=== PATIENT | female | born 1990 | race Caucasian/White ===

== ENCOUNTER → 2018-07-03 | Outpatient (CLI) | payer MEDICAID | END | disposition home or self-care (01) | LOC: LABWHC1 09:57 | PROVIDERS: ATTEND Obstetrics & Gynecology Reproductive Endocrinology | DX: Z31.81 Encounter for male factor infertility in female patient (principal) | CPT/HCPCS: 36415; 84144 ==

== ENCOUNTER 2019-07-22 11:52 | Outpatient (CLI) | payer MEDICAID ==
[2019-07-22 12:52] VITALS: BP 128/86; PULSE 95; RESP 14; TEMP 98.2
[2019-07-22 12:56] LABS: Appearance,Urine Clear (Clear); Bacteria,Urine Rare /hpf; Bilirubin,Urine Negative (Negative); Blood,Urine Negative (Negative); Color,Urine Yellow; Glucose,Urine (UA) Negative (Negative); Ketones,Urine Negative (Negative); Leukocyte Esterase,Urine Small (Negative); Mucus,Urine Rare /hpf; Nitrite,Urine Negative (Negative); Protein,Urine Negative (Negative); RBC,Urine <1 /hpf (0-5); Specific Gravity,Urine 1.008 (1.001-1.035); Squamous Epithelial Cell,Urine <1 /hpf (0-4); Urobilinogen,Urine <2.0 mg/dL (<2.0)
--- NOTE | 2019-08-12 10:45 | P.MSEPDOC ---
Presenting Problems - Arrival Data Date of Arrival on Unit: 07/22/19 Time of Arrival on Unit: 11:52 Mode of Transport: Ambulatory - Complaint OB-Reason for Admission/Chief Complaint: Signs/Symptoms UTI Medical History - Information : 1 Para: 0 Term: 0 : 0 Abortions: Spontaneous or Elective: 0 Number of Living Children: 0 - Gestational Age Gestational Age by MARK (wks/days): 33 Weeks and 3 Days Review of Systems - Review of Systems Constitutional: No problems Breast: No problems ENT: No problems Cardiovascular: No problems Respiratory: No problems Gastrointestinal: No problems Genitourinary: Urgency, Increased frequency Musculoskeletal: No problems Neurological: No problems Skin: No problems Vital Signs - Temperature Temperature: 98.2 F Temperature Source: Oral - Pulse Right Brachial Pulse Rate: 95 Pulse Assessment Method: Automatic Cuff - Respirations Respiratory Rate: 14 Oxygen Delivery Method: Standby - Blood Pressure Right Arm Blood Pressure: 128/86 Blood Pressure Mean: 100 Blood Pressure Source: Automatic Cuff Medical Screen Scoring (Pre) - Cervical Exam Dilation: Exam Deferred Effacement: Exam Deferred - Uterine Contractions Frequency: N/A - Maternal Vital Signs Maternal Temperature: N/A Maternal Blood Pressure: N/A Signs of Preeclampsia: N/A Maternal Respirations: N/A - Assessment - Baby A Baseline FHR: 130 Heart Rate - NICHD Category: Category I (Normal) = 0 NST: Reactive Position: N/A Station: N/A - Total Score - Baby A Total Score - Baby A: 0 - Total Score - Baby B Total Score - Baby B: 0 - Total Score - Baby C Total Score - Baby C: 0 - Level of Risk - Baby A Level of Risk - Baby A: Low (0-5) - Level of Risk - Baby B Level of Risk - Baby B: Low (0-5) - Level of Risk - Baby C Level of Risk - Baby C: Low (0-5) Physician Notification (Pre) - Physician Notified Physician Notified Date: 07/22/19 Physician Notified Time: 12:22 Physician/Practitioner Notifed:: kate Spoke With: kate New Order Received: Yes - Notification Comment Comment: reported pt visit with concerns of uti and reporting some urine leaking. amnisure obtained, ua sent. 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 dr phillips to discharge pt and pt will be called with ua results. Disposition - Disposition OB Disposition: Discharge to home Discharge Date: 07/22/19 Discharge Time: 12:27 I agree with the RN Medical Screening Exam: Yes Risk & Benefit of care provided described in d/c instruction: Yes Diagnosis: RELATED CONDITIONS, UNSPECIFIED, THIRD TRIMESTER
== END 2019-07-22 12:30 | disposition home or self-care (01) ==
LOC: FBPOP 11:52
PROVIDERS: ATTEND Obstetrics & Gynecology
DX: O26.893 Other specified pregnancy related conditions, third trimester (principal); Z3A.33 33 weeks gestation of pregnancy
CPT/HCPCS: 59025; 81001; 99213

== ENCOUNTER 2019-08-26 09:44 | Outpatient (CLI) | payer MEDICAID ==
[2019-08-26 10:56] LABS: Appearance,Urine Clear (Clear); Bacteria,Urine Occasional /hpf; Bilirubin,Urine Negative (Negative); Blood,Urine Negative (Negative); Color,Urine Light Yellow; Glucose,Urine (UA) Negative (Negative); Ketones,Urine Negative (Negative); Leukocyte Esterase,Urine Large (Negative); Nitrite,Urine Negative (Negative); PH, Urine 6.5 (5.0-8.0); Protein,Urine Trace (Negative); RBC,Urine <1 /hpf (0-5); Specific Gravity,Urine 1.004 (1.001-1.035); Squamous Epithelial Cell,Urine 2 /hpf (0-4); Urobilinogen,Urine <2.0 mg/dL (<2.0); WBC,Urine 12 /hpf (0-5)
[2019-08-26 11:02] VITALS: BP 157/93; PULSE 79; RESP 16; TEMP 98.6
[2019-08-26 11:03] LABS: Basophils % (A) 0 %; Eosinophils # (A) 0.1 k/uL (0-0.7); Eosinophils % (A) 1 %; HCT 28.3 % (34.0-46.0); HGB 9.1 gm/dL (11.4-16.0); Hypochromasia Marked; Lymphocytes # (A) 1.9 k/uL (1.0-4.8); Lymphocytes % (A) 19 %; MCH 22.5 pg (25.0-35.0); MCHC 32.1 g/dL (31.0-37.0); MCV 70.1 fL (80.0-100.0); Mean Platelet Volume 7.4; Microcytosis Moderate; Monocytes # (A) 0.4 k/uL (0-1.0); Monocytes % (A) 4 %; Neutrophils # (A) 7.2 k/uL (1.3-7.7); Neutrophils % (A) 73 %; Platelet Count 306 k/uL (150-450); Poikilocytosis Moderate; RBC 4.04 m/uL (3.80-5.40); WBC 9.9 k/uL (3.8-10.6)
[2019-08-26 11:06] LABS: ALT 14 U/L (9-52); African American GFR (CKD) >90 (>60 ml/min/1.73 sqM); Blood Urea Nitrogen 8 mg/dL (7-17); LDH 529 U/L (313-618); Uric Acid 5.6 mg/dL (3.7-7.4)
[2019-08-26 12:08] LABS: INR 0.8 (<1.2); Partial Thromboplastin Time 23.6 sec (22.0-30.0); Prothrombin Time 9.3 sec (9.0-12.0)
--- NOTE | 2019-09-16 10:33 | P.MSEPDOC ---
Presenting Problems - Arrival Data Date of Arrival on Unit: 08/26/19 Time of Arrival on Unit: 10:00 Mode of Transport: Wheelchair - Complaint OB-Reason for Admission/Chief Complaint: Other Comment: pt was at work when she got dizzy andshaky and thought she was going to pass out. pts coworker took her BP. 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 by w/c to be further evulated Medical History - Information : 1 Para: 0 Term: 0 : 0 Abortions: Spontaneous or Elective: 0 Number of Living Children: 0 - Gestational Age Gestational Age by MARK (wks/days): 38 Weeks and 2 Days Review of Systems - Review of Systems Constitutional: No problems Breast: No problems ENT: No problems Cardiovascular: No problems Respiratory: No problems Gastrointestinal: No problems Genitourinary: No problems Musculoskeletal: No problems Neurological: Dizziness Skin: No problems Vital Signs - Temperature Temperature: 98.6 F Temperature Source: Oral - Pulse Right Brachial Pulse Rate: 79 Pulse Assessment Method: Automatic Cuff - Respirations Respiratory Rate: 16 Oxygen Delivery Method: Room Air O2 Sat by Pulse Oximetry: 99 - Blood Pressure Right Arm Blood Pressure: 157/93 Blood Pressure Mean: 114 Blood Pressure Source: Automatic Cuff Medical Screen Scoring (Pre) - Cervical Exam Dilation: 1-3 cm = 1 Membranes: Intact - Uterine Contractions Frequency: N/A Duration: N/A Intensity: Contraction palpated strong = 1 - Maternal Vital Signs Maternal Temperature: N/A Maternal Blood Pressure: Systolic >139 = 2 Signs of Preeclampsia: N/A Maternal Respirations: N/A - Maternal Trauma Maternal Trauma: N/A - Assessment - Baby A Baseline FHR: 130 Heart Rate - NICHD Category: Category I (Normal) = 0 NST: Reactive Position: N/A Station: N/A - Total Score - Baby A Total Score - Baby A: 4 - Total Score - Baby B Total Score - Baby B: 4 - Total Score - Baby C Total Score - Baby C: 4 - Level of Risk - Baby A Level of Risk - Baby A: Low (0-5) - Level of Risk - Baby B Level of Risk - Baby B: Low (0-5) - Level of Risk - Baby C Level of Risk - Baby C: Low (0-5) Physician Notification (Pre) - Physician Notified Physician Notified Date: 08/26/19 Physician Notified Time: 10:10 Spoke With: Dr. Ferrell New Order Received: Yes - Notification Comment Comment: serial B/P and PIH lab workup Physician Notification (Post) - Physician Notified Physician Notified Date: 08/26/19 Physician Notified Time: 13:10 Spoke With: dr ferrell - Notification Comment Comment: lab results reviewed with Dr. Ferrell serial B/P 129/84, 135/85, 140/83 142/89, 134/82. pt may go home with instructions and f/u with her on Tuesday Disposition - Disposition OB Disposition: Discharge to home Discharge Date: 08/26/19 Discharge Time: 13:20 I agree with the RN Medical Screening Exam: Yes Risk & Benefit of care provided described in d/c instruction: Yes Diagnosis: GESTATIONAL HTN W/O SIGNIFICANT PROTEINURIA, THIRD TRIMESTER
== END 2019-08-26 13:20 | disposition home or self-care (01) ==
LOC: FBPOP 09:44
PROVIDERS: ATTEND Obstetrics & Gynecology Obstetrics
DX: O13.3 Gestational [pregnancy-induced] hypertension without significant proteinuria, third trimester (principal); Z3A.38 38 weeks gestation of pregnancy
CPT/HCPCS: 59025; 81001; 82565; 82570; 83615; 84156; 84450; 84460; 84520; 84550; 85025; 85384; 85610; 85730; 99215

== ENCOUNTER 2019-09-03 06:13 | Inpatient (IN) | payer MEDICAID ==
[2019-09-03] MEDS ORDERED: CARBOPROST TROMETHAMINE 250 MCG/ML 1 ML AMP IM PRN (06:28)
[2019-09-03] MEDS ORDERED: TERBUTALINE 1 MG/ML VIAL SQ PRN (06:28)
[2019-09-03] MEDS ORDERED: OXYTOCIN 10 UNIT/ML 1 ML VIAL IM PRN (06:28)
[2019-09-03] MEDS ORDERED: LIDOCAINE 0.5% (PF) 5 MG/ML (50 ML SDV) SQ PRN (06:28)
[2019-09-03] MEDS ORDERED: METHYLERGONOVINE 0.2 MG/ML 1 ML AMP IM PRN (06:28)
[2019-09-03] MEDS ORDERED: OXYTOCIN 30 UNITS/500 ML NS 30 UNIT in SALINE 1 500ML.BAG IV SCH (06:30)
[2019-09-03 06:35] VITALS: BMI 34.0
[2019-09-03] MEDS: LACTATED RINGERS 1,000 ML IV SCH ×4 (06:46→22:28)
[2019-09-03 07:07] LABS: Basophils # (A) 0.1 k/uL (0-0.2); Basophils % (A) 1 %; Eosinophils # (A) 0.2 k/uL (0-0.7); Eosinophils % (A) 2 %; HCT 29.3 % (34.0-46.0); Hypochromasia Marked; Lymphocytes % (A) 21 %; MCH 22.4 pg (25.0-35.0); MCHC 30.7 g/dL (31.0-37.0); MCV 72.8 fL (80.0-100.0); Mean Platelet Volume 9.2; Microcytosis Moderate; Monocytes # (A) 0.5 k/uL (0-1.0); Monocytes % (A) 5 %; Neutrophils # (A) 6.3 k/uL (1.3-7.7); Neutrophils % (A) 68 %; Platelet Count 301 k/uL (150-450); Poikilocytosis Moderate; RBC 4.03 m/uL (3.80-5.40); RDW 15.7 % (11.5-15.5); WBC 9.2 k/uL (3.8-10.6)
--- NOTE | 2019-09-03 08:34 | P.HPOB ---
History of Present Illness H&P Date: 09/03/19 Chief Complaint: IUP at 39 and 3/sevenths weeks, gestational hypertension This is a pleasant 29-year-old 1 para 0 at 39-3/7 weeks that presents to labor and delivery for induction of labor secondary to gestational hypertension. Patient has been being monitored over the last few weeks for labile blood pressures. She has had negative preeclampsia labs. She denies headache, right upper quadrant pain or visual changes today. She notes good movement and denies contractions on admission. This is a known IVF she does have a history of hypothyroidism in addition. On blood work she has a blood type of B+, rubella is immune, hepatitis B surface antigen is negative, group beta strep was negative. Review of Systems Constitutional: Reports fatigue, Denies chills, Denies fever Ears, nose, mouth and throat: Denies headache Cardiovascular: Reports leg edema Respiratory: Denies cough, Denies dyspnea Gastrointestinal: Denies constipation, Denies diarrhea, Denies nausea, Denies vomiting Genitourinary: Reports Past Medical History Past Medical History: No Reported History Additional Past Medical History / Comment(s): Hypothyroidism History of Any Multi-Drug Resistant Organisms: None Reported Additional Past Surgical History / Comment(s): IVF Past Anesthesia/Blood Transfusion Reactions: No Reported Reaction Past Psychological History: No Psychological Hx Reported Smoking Status: Never smoker - Past Family History Mother Family Medical History: Cancer, Hypertension Medications and Allergies Home Medications Medication Instructions Recorded Confirmed Type Levothyroxine Sodium [Synthroid] 25 mcg PO DAILY 08/26/19 09/03/19 History Pnv No.95/Ferrous Fum/Folic AC 1 each PO DAILY 08/26/19 09/03/19 History [ Multivitamin Tablet] Allergies Allergy/AdvReac Type Severity Reaction Status Date / Time fluconazole [From Diflucan] AdvReac Mild Rash/Hives Verified 09/03/19 06:27 drospirenone [From DAVID (28)] AdvReac Rash/Hives Verified 09/03/19 06:27 ethinyl estradiol AdvReac Rash/Hives Verified 09/03/19 06:27 [From DAVID (28)] Exam Osteopathic Statement: *. No significant issues noted on an osteopathic structural exam other than those noted in the History and Physical/Consult. Vital Signs Temp Pulse Resp BP Pulse Ox 09/03/19 06:30 98.9 F 104 H 15 154/86 97 Intake and Output 09/02/19 09/03/19 09/03/19 22:59 06:59 14:59 Other: Weight 89.811 kg Targeted physical exam is performed on this date in general this a well- nourished well-developed female in no acute distress, breathing is noted to nonlabored her heart has a regular rate and rhythm her abdomen is grav id and appropriate for gestational age, heart tones are noted to be category 1 she is vale irregularly, on cervical exam she is /-2 amniotomy is performed and clear fluid was obtained. Results Result Diagrams: 09/03/19 06:40 Abnormal Lab Results - Last 24 Hours (Table) 09/03/19 Range/Units 06:40 Hgb 9.0 L (11.4-16.0) gm/dL Hct 29.3 L (34.0-46.0) % MCV 72.8 L (80.0-100.0) fL MCH 22.4 L (25.0-35.0) pg MCHC 30.7 L (31.0-37.0) g/dL RDW 15.7 H (11.5-15.5) % Assessment and Plan (1) Term Current Visit: Yes Status: Acute Code(s): Z34.90 - ENCNTR FOR SUPRVSN OF NORMAL , UNSP, UNSP TRIMESTER SNOMED Code(s): 09576855 (2) Gestational hypertension Current Visit: Yes Status: Acute Code(s): O13.9 - GESTATIONAL HTN W/O SIGNIFICANT PROTEINURIA, UNSP TRIMESTER SNOMED Code(s): 226308220 (3) conceived through in vitro fertilization Current Visit: Yes Status: Acute Code(s): O09.819 - SUPRVSN OF PREG RSLT FROM ASSISTED REPRODCTV TECH, UNSP TRI SNOMED Code(s): 70712220 (4) Hypothyroid Current Visit: Yes Status: Acute Code(s): E03.9 - HYPOTHYROIDISM, UNSPECIFIED SNOMED Code(s): 84660997 Plan: Patient is admitted to labor and delivery and Pitocin induction of labor is begun per protocol. Amniotomy was performed clear fluid was obtained. Patient does desire epidural at some point during labor. Anticipate spontaneous vaginal delivery later this afternoon.
[2019-09-03] MEDS ORDERED: BUTORPHANOL 1 MG/ML 1 ML VIAL IV PRN (08:38)
[2019-09-03] MEDS: LEVOTHYROXINE 25 MCG TAB PO SCH (09:55)
[2019-09-03] MEDS: PRENATAL VIT-IRON-FOLIC ACID 1 EACH CAP PO SCH (09:55)
[2019-09-03 10:06] LABS: ALT 16 U/L (9-52); AST 24 U/L (14-36); African American GFR (CKD) >90 (>60 ml/min/1.73 sqM); Blood Urea Nitrogen 9 mg/dL (7-17); LDH 575 U/L (313-618); Uric Acid 6.2 mg/dL (3.7-7.4)
[2019-09-03 10:09] LABS: INR 0.8 (<1.2); Partial Thromboplastin Time 23.7 sec (22.0-30.0); Prothrombin Time 9.3 sec (9.0-12.0)
[2019-09-03] MEDS ORDERED: hydrALAZINE HCL 20 MG/ML 1 ML VIAL IVP STA (10:28)
[2019-09-03] MEDS ORDERED: SODIUM CHLORIDE 0.9% 100 ML BAG ONE (12:03)
[2019-09-03] MEDS ORDERED: ROPIVACAINE 5MG/ML 20ML VIAL ONE (12:03)
[2019-09-03] MEDS ORDERED: fentaNYL (PF) 50 MCG/ML 5 ML AMP ONE (12:03)
[2019-09-03] MEDS ORDERED: CITRIC ACID-SODIUM CITRATE 15 ML CUP PO ONE (17:48)
[2019-09-03] MEDS ORDERED: MORPHINE SULFATE (PF) 0.3 MG/0.3 ML SYR ONE (18:07)
[2019-09-03] MEDS ORDERED: OXYTOCIN 10 UNIT/ML 1 ML VIAL ONE (18:07)
[2019-09-03] MEDS ORDERED: ONDANSETRON 4 MG/2 ML VIAL ONE (18:07)
[2019-09-03] MEDS ORDERED: ONDANSETRON 4 MG/2 ML VIAL IVP PRN (18:52)
[2019-09-03] MEDS ORDERED: NALOXONE 0.4 MG/ML 1 ML VIAL IV PRN (18:52)
[2019-09-03] MEDS ORDERED: diphenhydrAMINE 50 MG CAP PO PRN (18:52)
[2019-09-03] MEDS ORDERED: diphenhydrAMINE 25 MG CAP PO PRN (18:52)
[2019-09-03] MEDS ORDERED: METOCLOPRAMIDE 5 MG/ML 2 ML VIAL IVP PRN (18:52)
[2019-09-03] MEDS ORDERED: diphenhydrAMINE 50 MG/ML 1 ML VIAL IVP PRN ×2 (18:52)
[2019-09-03] MEDS ORDERED: ACETAMINOPHEN TAB 325 MG TAB PO PRN (18:52)
[2019-09-03] MEDS ORDERED: ZOLPIDEM 5 MG TAB PO PRN (18:52)
[2019-09-03] MEDS ORDERED: ACETAMINOPHEN IV (For NPO) 1,000 MG in EMPTY BAG 1 BAG IVPB ONE (18:52)
--- NOTE | 2019-09-03 18:52 | P.OP ---
Date of Procedure: 09/03/19 Preoperative Diagnosis: IUP @ 39 3 arrest of first stage of labor, preeclampsia Postoperative Diagnosis: Same Procedure(s) Performed: Primary low transverse section Anesthesia: epidural (With Duramorph) Surgeon: Tiana Ferrell Media Director #1: Hayley Conway Estimated Blood Loss (ml): 500 IV fluids (ml): 700 Urine output (ml): 100 Pathology: other (Placenta) Condition: stable Disposition: PACU Indications for Procedure: Worsening of blood pressures despite good pain control with epidural, arrest of first stage of labor minimal cervical change coordinator the last 12 hours. Operative Findings: Normal uterus tubes and ovaries were appreciated, male infant delivered at 1818, weight of 8 lbs. 11 oz. Apgars of 8 and 9 at one and 5 minutes respectively. Description of Procedure: Patient was taken back to the operating suite where epidural anesthesia was found to be adequate by the anesthesia department. She was then prepped and draped in normal sterile fashion in the dorsal supine position. A Pfannenstiel skin incision was made with the scalpel and carried through the underlying layer of fascia. The fascia was then incised in the midline and extended laterally. The rectus muscles were then in the midline the peritoneum was identified and entered, the incision was then extended superiorly and inferiorly with good visualization the bladder. The bladder blade was then inserted and the vesicouterine peritoneum was identified and the bladder flap was created using sharp and blunt dissection. A hysterotomy incision was made with a scalpel the head was then encountered and delivered through the incision the umbilical cord was then doubly clamped and cut and handed off to awaiting RN. The placenta was then removed manually and cleared the uterus was cleared of all clots and debris. The uterine incision was then closed with 0 Vicryl in a running locked fashion from one lateral to the other a second layer of suture was used to obtain hemostasis. The pelvis was then copiously irrigated and the uterus was inspected once again the hysterotomy incision was noted to be hemostatic. The uterus was returned to the abdomen and the gutters were cleared of all clots and debris. The fascial incision was then closed with 0 Vicryl in a running fashion from one lateral edge the other. The subcutaneous tissue was then irrigated and closed with 3-0 Vicryl. The skin incision was closed with 4-0 Vicryl in a subcuticular fashion. All counts were correct 2 patient tolerated procedure well and was taken the recovery room awake in stable condition.
[2019-09-03] MEDS ORDERED: OXYTOCIN 20 UNITS/1000 ML NS 1,000 ML IV SCH (19:00)
[2019-09-03] MEDS ORDERED: IBUPROFEN IV 800 MG in SODIUM CHLORIDE 0.9% 250 ML IV ONE (19:15)
[2019-09-03] MEDS: LABETALOL 100 MG TAB PO SCH (20:20)
[2019-09-03] MEDS: SENNOSIDES-DOCUSATE SODIUM 1 EACH TAB PO SCH (22:30)
[2019-09-04] MEDS: LEVOTHYROXINE 25 MCG TAB PO SCH (06:41)
[2019-09-04] MEDS: LACTATED RINGERS 1,000 ML IV SCH ×2 (06:42→20:17)
[2019-09-04 07:48] LABS: Basophils # (A) 0.1 k/uL (0-0.2); Basophils % (A) 0 %; Eosinophils # (A) 0.1 k/uL (0-0.7); Eosinophils % (A) 0 %; HCT 26.9 % (34.0-46.0); HGB 8.2 gm/dL (11.4-16.0); Hypochromasia Marked; Lymphocytes # (A) 1.9 k/uL (1.0-4.8); Lymphocytes % (A) 14 %; MCH 22.5 pg (25.0-35.0); MCHC 30.6 g/dL (31.0-37.0); MCV 73.5 fL (80.0-100.0); Mean Platelet Volume 8.7; Microcytosis Slight; Monocytes # (A) 0.8 k/uL (0-1.0); Monocytes % (A) 6 %; Neutrophils # (A) 10.3 k/uL (1.3-7.7); Neutrophils % (A) 77 %; Platelet Count 252 k/uL (150-450); Poikilocytosis Slight; RBC 3.66 m/uL (3.80-5.40); RDW 15.8 % (11.5-15.5); WBC 13.4 k/uL (3.8-10.6)
[2019-09-04 07:56] LABS: ALT 18 U/L (9-52); AST 29 U/L (14-36); African American GFR (CKD) >90 (>60 ml/min/1.73 sqM); Blood Urea Nitrogen 7 mg/dL (7-17); LDH 688 U/L (313-618); Uric Acid 6.2 mg/dL (3.7-7.4)
[2019-09-04] MEDS: LABETALOL 100 MG TAB PO SCH ×2 (08:17→21:05)
[2019-09-04] MEDS: IBUPROFEN 600 MG TAB PO PRN ×2 (08:17→21:05)
[2019-09-04] MEDS: SENNOSIDES-DOCUSATE SODIUM 1 EACH TAB PO SCH ×2 (08:25→19:52)
--- NOTE | 2019-09-04 10:57 | P.PNOBGPC ---
Subjective - Subjective Principal diagnosis: POD 1 LTCS, preeclampsia Interval history: Patient did well overnight. On this postop day #1 she is ambulating and voiding without difficulty. She is tolerating a regular diet without nausea or vomiting. Her blood pressures have been controlled on 100 mg of oral labetalol. She denies headache this morning. She is pumping as her infant is in the nursery with low blood sugar, receiving IV fluids Her lochia is minimal. She states her pain is well-controlled. Patient reports: Reports appetite normal, Reports voiding normally, Reports pain well controlled, Reports ambulating normally : doing well (In the nursery) Objective - Vital Signs Latest vital signs: Vital Signs Temp Pulse Resp BP Pulse Ox 09/04/19 08:00 98.2 F 74 16 156/82 99 09/04/19 04:00 98.7 F 74 14 129/86 09/04/19 00:00 98.6 F 84 16 119/90 09/03/19 21:00 100.3 F H 103 H 16 164/90 98 09/03/19 20:31 110 H 16 171/94 98 09/03/19 20:00 98 16 171/97 97 09/03/19 19:46 83 16 162/84 97 09/03/19 19:31 93 16 170/103 100 09/03/19 19:15 98 16 167/95 98 09/03/19 19:00 99.0 F 92 16 153/74 98 Intake and Output 09/03/19 09/04/19 09/04/19 22:59 06:59 14:59 Output Total 725 600 500 Balance -725 -600 -500 Output: Urine 725 600 500 Uretheral (Mackenzie) 600 Other: # Voids 1 - Exam Extremities: Present: normal, edema Abdomen: Present: normal appearance, soft Incision: Present: normal, dry, intact Uterus: Present: normal, firm - Labs Labs: Abnormal Lab Results - Last 24 Hours (Table) 09/04/19 09/04/19 Range/Units 06:52 06:52 WBC 13.4 H (3.8-10.6) k/uL RBC 3.66 L (3.80-5.40) m/uL Hgb 8.2 L (11.4-16.0) gm/dL Hct 26.9 L (34.0-46.0) % MCV 73.5 L (80.0-100.0) fL MCH 22.5 L (25.0-35.0) pg MCHC 30.6 L (31.0-37.0) g/dL RDW 15.8 H (11.5-15.5) % Neutrophils # 10.3 H (1.3-7.7) k/uL Lactate Dehydrogenase 688 H (313-618) U/L Assessment and Plan (1) Term Current Visit: Yes Status: Acute Code(s): Z34.90 - ENCNTR FOR SUPRVSN OF NORMAL , UNSP, UNSP TRIMESTER SNOMED Code(s): 08272212 (2) Gestational hypertension Current Visit: Yes Status: Acute Code(s): O13.9 - GESTATIONAL HTN W/O SIGNIFICANT PROTEINURIA, UNSP TRIMESTER SNOMED Code(s): 869708684 (3) conceived through in vitro fertilization Current Visit: Yes Status: Acute Code(s): O09.819 - SUPRVSN OF PREG RSLT FROM ASSISTED REPRODCTV TECH, UNSP TRI SNOMED Code(s): 57368577 (4) Hypothyroid Current Visit: Yes Status: Acute Code(s): E03.9 - HYPOTHYROIDISM, UNSPECIFIED SNOMED Code(s): 82362314 (5) S/P section Current Visit: Yes Status: Acute Code(s): Z98.891 - HISTORY OF UTERINE SCAR FROM PREVIOUS SURGERY SNOMED Code(s): 646345268 Plan: Patient is doing well postoperatively. Will continue routine care.
[2019-09-04] MEDS: PRENATAL VIT-IRON-FOLIC ACID 1 EACH CAP PO SCH (13:58)
[2019-09-04] MEDS: HYDROcodone/APAP 5-325MG 1 EACH TAB PO PRN ×2 (16:58→23:58)
[2019-09-05] MEDS: IBUPROFEN 600 MG TAB PO PRN ×3 (04:16→18:27)
[2019-09-05] MEDS: SENNOSIDES-DOCUSATE SODIUM 1 EACH TAB PO SCH ×2 (07:54→21:18)
[2019-09-05] MEDS: LEVOTHYROXINE 25 MCG TAB PO SCH (07:55)
[2019-09-05] MEDS: HYDROcodone/APAP 5-325MG 1 EACH TAB PO PRN (07:55)
--- NOTE | 2019-09-05 08:42 | P.PNOBGPC ---
Subjective - Subjective Principal diagnosis: POD 2 LTCS Interval history: Patient is doing well postoperatively. She is a bleeding and voiding without difficulty. She is tolerating regular diet without nausea or vomiting. Her blood pressures are slowly starting to increase 150s over 90s despite being treated with labetalol 100 twice a day. Patient denies headache right upper quadrant pain. Her remains in the nursery for blood sugar control. Patient reports: Reports appetite normal, Reports voiding normally, Reports pain well controlled, Reports ambulating normally Wagoner: doing well (In special care nursery) Objective - Vital Signs Latest vital signs: Vital Signs Temp Pulse Resp BP Pulse Ox 09/05/19 08:00 98.8 F 93 16 170/95 97 09/05/19 00:00 98.3 F 93 16 144/80 95 09/04/19 20:00 99.1 F 99 16 09/04/19 16:00 98.3 F 88 16 158/95 09/04/19 12:00 98.2 F 76 16 133/79 99 Intake and Output 09/04/19 09/05/19 09/05/19 22:59 06:59 14:59 Other: # Voids 1 - Exam Extremities: Present: normal, edema Abdomen: Present: normal appearance, soft Incision: Present: normal Uterus: Present: normal, firm Assessment and Plan (1) Term Current Visit: Yes Status: Acute Code(s): Z34.90 - ENCNTR FOR SUPRVSN OF NORMAL , UNSP, UNSP TRIMESTER SNOMED Code(s): 79581103 (2) Gestational hypertension Current Visit: Yes Status: Acute Code(s): O13.9 - GESTATIONAL HTN W/O SIGNIFICANT PROTEINURIA, UNSP TRIMESTER SNOMED Code(s): 253322733 (3) conceived through in vitro fertilization Current Visit: Yes Status: Acute Code(s): O09.819 - SUPRVSN OF PREG RSLT FROM ASSISTED REPRODCTV TECH, UNSP TRI SNOMED Code(s): 78064593 (4) Hypothyroid Current Visit: Yes Status: Acute Code(s): E03.9 - HYPOTHYROIDISM, UNSPECIFIED SNOMED Code(s): 69738452 (5) S/P section Current Visit: Yes Status: Acute Code(s): Z98.891 - HISTORY OF UTERINE SCAR FROM PREVIOUS SURGERY SNOMED Code(s): 958759416 Plan: Patient is doing well we will increase her labetalol to 200 twice a day secondary to her increasing blood pressures on this postop day #2. Plan is discussed with patient and questions are answered will watch blood pressures closely and adjust medication as needed.
[2019-09-05] MEDS: LABETALOL 200 MG TAB PO SCH ×2 (08:51→21:18)
[2019-09-05] MEDS: PRENATAL VIT-IRON-FOLIC ACID 1 EACH CAP PO SCH (08:51)
[2019-09-06] MEDS: HYDROcodone/APAP 5-325MG 1 EACH TAB PO PRN ×2 (00:31→23:54)
[2019-09-06] MEDS: SENNOSIDES-DOCUSATE SODIUM 1 EACH TAB PO SCH ×2 (07:45→20:04)
[2019-09-06] MEDS: LEVOTHYROXINE 25 MCG TAB PO SCH (07:45)
[2019-09-06] MEDS: IBUPROFEN 600 MG TAB PO PRN ×3 (07:46→20:04)
[2019-09-06] MEDS: PRENATAL VIT-IRON-FOLIC ACID 1 EACH CAP PO SCH (07:46)
[2019-09-06] MEDS: LABETALOL 200 MG TAB PO SCH ×2 (07:53→21:11)
--- NOTE | 2019-09-06 08:54 | P.PNOBGPC ---
Subjective - Subjective Principal diagnosis: POD 3 LTCS Interval history: Overall patient is doing well. She is ambulating and voiding without difficulty. She is tolerating a regular diet without nausea or vomiting. She is being monitored closely for her blood pressures. She was increased to 200 mg by mouth twice a day of labetalol yesterday. Blood pressures this morning 150s over 80's. Her lochia is minimal. Patient reports: Reports appetite normal, Reports voiding normally, Reports pain well controlled, Reports ambulating normally : doing well (In the nursery on a bili blanket) Objective - Vital Signs Latest vital signs: Vital Signs Temp Pulse Resp BP Pulse Ox 09/06/19 00:00 97.7 F 73 16 144/86 09/05/19 20:00 97.9 F 72 16 173/87 09/05/19 15:37 98.3 F 66 16 156/76 96 09/05/19 12:00 98.3 F 77 16 157/81 96 09/05/19 10:00 153/89 - Exam Extremities: Present: normal, edema Abdomen: Present: normal appearance, soft Incision: Present: normal, dry, intact Uterus: Present: normal, firm Assessment and Plan (1) Term Current Visit: Yes Status: Acute Code(s): Z34.90 - ENCNTR FOR SUPRVSN OF NORMAL , UNSP, UNSP TRIMESTER SNOMED Code(s): 07712454 (2) Gestational hypertension Current Visit: Yes Status: Acute Code(s): O13.9 - GESTATIONAL HTN W/O SIGNIFICANT PROTEINURIA, UNSP TRIMESTER SNOMED Code(s): 474108709 (3) conceived through in vitro fertilization Current Visit: Yes Status: Acute Code(s): O09.819 - SUPRVSN OF PREG RSLT FROM ASSISTED REPRODCTV TECH, UNSP TRI SNOMED Code(s): 03140685 (4) Hypothyroid Current Visit: Yes Status: Acute Code(s): E03.9 - HYPOTHYROIDISM, UNSPECIFIED SNOMED Code(s): 17172260 (5) S/P section Current Visit: Yes Status: Acute Code(s): Z98.891 - HISTORY OF UTERINE SCAR FROM PREVIOUS SURGERY SNOMED Code(s): 376136797 Plan: We'll continue close monitoring of blood pressure and assess need for increasing labetalol. Patient is requesting a breast pump prescription and this is given to patient today. As infant remains in the nursery we will anticipate discharge home tomorrow.
[2019-09-06] MEDS ORDERED: INFLUENZA VACCINE (6 MOS+) 60 MCG/0.5 ML SYRINGE IM ONE (14:58)
[2019-09-07] MEDS: LEVOTHYROXINE 25 MCG TAB PO SCH (06:12)
[2019-09-07] MEDS: IBUPROFEN 600 MG TAB PO PRN ×2 (06:27→13:28)
[2019-09-07] MEDS: PRENATAL VIT-IRON-FOLIC ACID 1 EACH CAP PO SCH (08:00)
--- NOTE | 2019-09-07 09:18 | P.DS ---
Providers Date of admission: 09/03/19 06:13 Expected date of discharge: 09/07/19 Attending physician: Tiana Ferrell Primary care physician: Stated None - Discharge Diagnosis(es) (1) Term Current Visit: Yes Status: Acute (2) Gestational hypertension Current Visit: Yes Status: Acute (3) conceived through in vitro fertilization Current Visit: Yes Status: Acute (4) Hypothyroid Current Visit: Yes Status: Acute (5) S/P section Current Visit: Yes Status: Acute Hospital Course: This is a pleasant 1 para 0 that presented to labor and delivery at 39- 3/7 weeks for induction of labor. Patient had been being watched for gestational hypertension and blood pressures have been labile. Patient had negative preeclampsia workup. Patient was admitted Pitocin induction of labor was begun. Once regular contractions were noted amniotomy was performed and clear fluid was obtained. Patient's blood pressures were noted to be elevated she became uncomfortable requested epidural placement. Anesthesia placed epidural without difficulty. Blood pressures continued to elevate 160s over 90s to 100, and minimal cervical change was noted by early evening therefore decision was made to proceed with primary low transverse section. C- section was performed without difficulty for further details on the please see the operative report. did end up being admitted to special care nursery secondary to low blood sugar, and subsequent jaundice. On this postop day #4 infant is in the room with mom. Patient is feeling well on this postop day #4 she is ambulating and voiding without difficulty. She is tolerating a regular diet without nausea or vomiting. She states she feels well and is ready for discharge home. Patient Condition at Discharge: Good Plan - Discharge Summary New Discharge Prescriptions: No Action Levothyroxine Sodium [Synthroid] 25 mcg PO DAILY Pnv No.95/Ferrous Fum/Folic AC [ Multivitamin Tablet] 1 each PO DAILY Discharge Medication List Levothyroxine Sodium [Synthroid] 25 mcg PO DAILY 08/26/19 [History] Pnv No.95/Ferrous Fum/Folic AC [ Multivitamin Tablet] 1 each PO DAILY 08/26/19 [History] Follow up Appointment(s)/Referral(s): Tiana Ferrell DO [Doctor of Osteopathic Medicine] - 2 Weeks Patient Instructions/Handouts: (DC), (GEN) Activity/Diet/Wound Care/Special Instructions: Patient is to follow-up in 2 weeks for routine incision check. She is to take labetalol 200 mg twice daily as she has been in the hospital. She can expect bleeding similar to a period until this postop appointment. Discharge Disposition: HOME SELF-CARE
[2019-09-07] MEDS: LABETALOL 200 MG TAB PO SCH (09:21)
[2019-09-07] MEDS: SENNOSIDES-DOCUSATE SODIUM 1 EACH TAB PO SCH (09:21)
[2019-09-07 11:44] VITALS: BP 148/95; PULSE 69; RESP 18; TEMP 98.1
== END 2019-09-07 17:15 | disposition home or self-care (01) | DRG 788 ==
LOC: 4FBP 06:13
PROVIDERS: ADMIT Obstetrics & Gynecology Obstetrics; ATTEND Obstetrics & Gynecology Obstetrics
PROC: 10907ZC Drainage of Amniotic Fluid, Therapeutic from Products of Conception, Via Natural or Artificial Opening (ICD-10-PCS; principal; 2019-09-03 18:41)
PROC: 00HU33Z Insertion of Infusion Device into Spinal Canal, Percutaneous Approach (ICD-10-PCS; principal; 2019-09-03 18:41)
PROC: 10D00Z1 Extraction of Products of Conception, Low, Open Approach (ICD-10-PCS; principal; 2019-09-03 18:41)
PROC: 3E033VJ Introduction of Other Hormone into Peripheral Vein, Percutaneous Approach (ICD-10-PCS; principal; 2019-09-03 18:41)
PROC: 3E0R3NZ Introduction of Analgesics, Hypnotics, Sedatives into Spinal Canal, Percutaneous Approach (ICD-10-PCS; principal; 2019-09-03 18:41)
DX: O13.4 Gestational [pregnancy-induced] hypertension without significant proteinuria, complicating childbirth (principal); O62.1 Secondary uterine inertia; Z37.0 Single live birth; Z3A.39 39 weeks gestation of pregnancy; Z79.890 Hormone replacement therapy; O99.284 Endocrine, nutritional and metabolic diseases complicating childbirth; E03.9 Hypothyroidism, unspecified; Z82.49 Family history of ischemic heart disease and other diseases of the circulatory system
CPT/HCPCS: 82565; 83615; 84450; 84460; 84520; 84550; 85025; 85610; 85730; 86850; 86900; 86901; 88307; 90686

== ENCOUNTER → 2019-10-17 | Outpatient (CLI) | payer MEDICAID ==
[2019-10-17 20:27] LABS: T4, Free (Free Thyroxine) 1.1 ng/dL (0.80-1.80)
== END | disposition home or self-care (01) ==
LOC: LABWHC1 11:57
PROVIDERS: ATTEND Obstetrics & Gynecology Obstetrics
DX: E03.9 Hypothyroidism, unspecified (principal)
CPT/HCPCS: 36415; 84439; 84443

== ENCOUNTER 2022-09-15 06:27 | Emergency (ER) | payer MEDICAID ==
[2022-09-15 06:33] VITALS: RESP 18; TEMP 98.6
[2022-09-15] MEDS ORDERED: PANTOPRAZOLE 40 MG/10 ML VIAL IVP STA (06:45)
[2022-09-15] MEDS ORDERED: SODIUM CHLORIDE 0.9% 1,000 ML IV STA (06:45)
[2022-09-15] MEDS ORDERED: ONDANSETRON 4 MG/2 ML VIAL IVP STA (06:45)
[2022-09-15] MEDS ORDERED: MAG HYDROX/AL HYDROX/SIMETH 30 ML, HYOSCYAMINE ELIXIR 10 ML, LIDOCAINE VISCOUS 2% 10 ML PO STA ×3 (06:46)
--- NOTE | 2022-09-15 06:54 | ED ---
General Adult HPI - General Source: patient, RN notes reviewed, old records reviewed Mode of arrival: ambulatory Limitations: no limitations <Sunday Ballard - Last Filed: 09/15/22 06:56> <Manjinder Ramon - Last Filed: 09/15/22 08:16> - General Chief complaint: Abdominal Pain Stated complaint: Epigastric Pain, Shortness of breath Time Seen by Provider: 09/15/22 06:36 - History of Present Illness Initial comments: Patient is a 32-year-old female with no significant past medical history who presents emergency Department with the complaint of epigastric and left upper quadrant abdominal discomfort. Began last night. Has had this pain previously misdiagnosed emergently with gastritis. Pain went away on its own last time. She has attempted to take Maalox and other acid reflux medications at home with minimal to no relief. Nurse's 1 episode of nonbilious nonbloody emesis. Denies any diarrhea. Denies any fevers, chills. Denies any chest pain or shortness of breath. His no urinary complaints at this time. States she is not and is currently on her period. Has no other acute complaints at this time. Further evaluation at this time.She has not states shortness of breath, however she states that is due to the pain when she takes deeper breaths and she has abdominal pain. Denies actual shortness of breath. (Sunday Ballard) - Related Data Home Medications Medication Instructions Recorded Confirmed Levothyroxine Sodium [Synthroid] 25 mcg PO DAILY 08/26/19 09/03/19 Pnv No.95/Ferrous Fum/Folic AC 1 each PO DAILY 08/26/19 09/03/19 [ Multivitamin Tablet] Previous Rx's Medication Instructions Recorded Pantoprazole Sodium [Protonix] 20 mg PO DAILY #15 tab 09/15/22 Allergies Allergy/AdvReac Type Severity Reaction Status Date / Time fluconazole [From Diflucan] AdvReac Mild Rash/Hives Verified 09/15/22 06:34 drospirenone [From DAVID (28)] AdvReac Rash/Hives Verified 09/15/22 06:34 ethinyl estradiol AdvReac Rash/Hives Verified 09/15/22 06:34 [From DAVID (28)] Review of Systems ROS Other: All systems not noted in ROS Statement are negative. <Sunday Ballard - Last Filed: 09/15/22 06:56> ROS Other: All systems not noted in ROS Statement are negative. <Manjinder Ramon - Last Filed: 09/15/22 08:16> ROS Statement: Those systems with pertinent positive or pertinent negative responses have been documented in the HPI. Review of Systems: CONST: Denies fever EYES: Denies blurry vision ENT: Denies nasal congestion C/V: Denies Chest pain RESP: Denies shortness of breath GI: Endorses abdominal pain. : Denies dysuria SKIN: Denies rash. MSK: Denies joint pain. NEURO: Denies headache (Sunday Ballard) Past Medical History Past Medical History: No Reported History Additional Past Medical History / Comment(s): Hypothyroidism History of Any Multi-Drug Resistant Organisms: None Reported Additional Past Surgical History / Comment(s): IVF Past Anesthesia/Blood Transfusion Reactions: No Reported Reaction Past Psychological History: No Psychological Hx Reported Smoking Status: Never smoker Past Alcohol Use History: None Reported Past Drug Use History: None Reported - Past Family History Mother Family Medical History: Cancer, Hypertension <Sunday Ballard - Last Filed: 09/15/22 06:56> General Exam Limitations: no limitations <Sunday Ballard - Last Filed: 09/15/22 06:56> - General Exam Comments Initial Comments: General: Appears in no acute distress. HEAD: Normal with no signs of head trauma. EYES: PERRLA, EOMI, conjunctiva normal, no discharge. ENT: Hearing grossly intact, normal oropharynx. RESPIRATORY: Clear breath sounds bilaterally. No wheezes, rales, or rhonchi. C/V: Regular rate and rhythm. S1 and S2 auscultated, no edema, peripheral pulses 2+ and intact throughout ABD: Abd is soft, relatively nontender, nondistended. Patient does have mild tenderness mostly in the left upper quadrant of the abdomen. No guarding. No peritoneal signs. No rebound tenderness. EXT: Normal range of motion, no obvious deformity SKIN: No rashes or lesions observed on exposed skin. NEURO: Alert and oriented 4. (Sunday Ballard) Course <Manjinder Ramon - Last Filed: 09/15/22 08:16> Vital Signs 09/15/22 09/15/22 06:32 07:53 Temperature 98.6 F Pulse Rate 82 80 Respiratory 18 18 Rate Blood Pressure 137/87 144/83 O2 Sat by Pulse 99 100 Oximetry - Reevaluation(s) Reevaluation #1: 09/15/22 08:13 The patient was endorsed me by Dr. Ballard her shift change pending labs and imaging results. Labs were essentially within normal limits x-ray was nons pecific. Patient is feeling much improved at the medication given the presentation is consistent with GERD. Patient be discharged follow-up with her doctor she'll be placed on Protonix (Manjinder Ramon) Medical Decision Making <Sunday Ballard - Last Filed: 09/15/22 06:56> - Lab Data Result diagrams: 09/15/22 06:57 09/15/22 06:57 <Manjinder Ramon - Last Filed: 09/15/22 08:16> - Medical Decision Making Based on the patient's presentation and physical exam, I'm concerned for acute intra-abdominal process for the patient's current symptoms. We'll symptomatically treated with GI cocktail as well as IV fluids and antiemetics. We will obtain abdominal laboratory studies to start as well as a KUB x-ray. Patient was in agreement this plan. Vital signs are within acceptable limits. At this time it is the end of my shift. Patient will be signed out to the oncoming Emergency department physician Dr. Ramon with disposition pending work up. (Sunday Ballard) - Lab Data Lab Results 09/15/22 09/15/22 09/15/22 Range/Units 06:57 06:57 06:57 WBC 8.1 (3.8-10.6) k/uL RBC 5.02 (3.80-5.40) m/uL Hgb 13.6 (11.4-16.0) gm/dL Hct 39.7 (34.0-46.0) % MCV 79.1 L (80.0-100.0) fL MCH 27.2 (25.0-35.0) pg MCHC 34.3 (31.0-37.0) g/dL RDW 13.9 (11.5-15.5) % Plt Count 308 (150-450) k/uL MPV 8.2 Neutrophils % 67 % Lymphocytes % 24 % Monocytes % 4 % Eosinophils % 3 % Basophils % 1 % Neutrophils # 5.4 (1.3-7.7) k/uL Lymphocytes # 1.9 (1.0-4.8) k/uL Monocytes # 0.3 (0-1.0) k/uL Eosinophils # 0.2 (0-0.7) k/uL Basophils # 0.0 (0-0.2) k/uL PT 9.8 (9.0-12.0) sec INR 0.9 (<1.2) APTT 22.2 (22.0-30.0) sec Sodium (137-145) mmol/L Potassium (3.5-5.1) mmol/L Chloride (98-107) mmol/L Carbon Dioxide (22-30) mmol/L Anion Gap mmol/L BUN (7-17) mg/dL Creatinine (0.52-1.04) mg/dL Est GFR (CKD-EPI)AfAm (>60 ml/min/1.73 sqM) Est GFR (CKD-EPI)NonAf (>60 ml/min/1.73 sqM) Glucose (74-99) mg/dL Calcium (8.4-10.2) mg/dL Total Bilirubin (0.2-1.3) mg/dL AST (14-36) U/L ALT (4-34) U/L Alkaline Phosphatase (38-126) U/L Total Protein (6.3-8.2) g/dL Albumin (3.5-5.0) g/dL Amylase (30-110) U/L Lipase (23-300) U/L HCG, Qual Urine Color Yellow Urine Appearance Clear (Clear) Urine pH 7.0 (5.0-8.0) Ur Specific [place] 1.024 (1.001-1.035) Urine Protein Trace H (Negative) Urine Glucose (UA) Negative (Negative) Urine Ketones Negative (Negative) Urine Blood Negative (Negative) Urine Nitrite Negative (Negative) Urine Bilirubin Negative (Negative) Urine Urobilinogen <2.0 (<2.0) mg/dL Ur Leukocyte Esterase Negative (Negative) 09/15/22 Range/Units 06:57 WBC (3.8-10.6) k/uL RBC (3.80-5.40) m/uL Hgb (11.4-16.0) gm/dL Hct (34.0-46.0) % MCV (80.0-100.0) fL MCH (25.0-35.0) pg MCHC (31.0-37.0) g/dL RDW (11.5-15.5) % Plt Count (150-450) k/uL MPV Neutrophils % % Lymphocytes % % Monocytes % % Eosinophils % % Basophils % % Neutrophils # (1.3-7.7) k/uL Lymphocytes # (1.0-4.8) k/uL Monocytes # (0-1.0) k/uL Eosinophils # (0-0.7) k/uL Basophils # (0-0.2) k/uL PT (9.0-12.0) sec INR (<1.2) APTT (22.0-30.0) sec Sodium 139 (137-145) mmol/L Potassium 3.9 (3.5-5.1) mmol/L Chloride 107 (98-107) mmol/L Carbon Dioxide 22 (22-30) mmol/L Anion Gap 10 mmol/L BUN 10 (7-17) mg/dL Creatinine 0.60 (0.52-1.04) mg/dL Est GFR (CKD-EPI)AfAm >90 (>60 ml/min/1.73 sqM) Est GFR (CKD-EPI)NonAf >90 (>60 ml/min/1.73 sqM) Glucose 110 H (74-99) mg/dL Calcium 8.7 (8.4-10.2) mg/dL Total Bilirubin 0.4 (0.2-1.3) mg/dL AST 23 (14-36) U/L ALT 18 (4-34) U/L Alkaline Phosphatase 69 (38-126) U/L Total Protein 7.1 (6.3-8.2) g/dL Albumin 4.3 (3.5-5.0) g/dL Amylase 59 (30-110) U/L Lipase 193 (23-300) U/L HCG, Qual Not Detected Urine Color Urine Appearance (Clear) Urine pH (5.0-8.0) Ur Specific [place] (1.001-1.035) Urine Protein (Negative) Urine Glucose (UA) (Negative) Urine Ketones (Negative) Urine Blood (Negative) Urine Nitrite (Negative) Urine Bilirubin (Negative) Urine Urobilinogen (<2.0) mg/dL Ur Leukocyte Esterase (Negative) Disposition <Sunday Ballard - Last Filed: 09/15/22 06:56> Is patient prescribed a controlled substance at d/c from ED?: No Decision Date: 09/15/22 Decision Time: 08:16 <Manjinder Ramon - Last Filed: 09/15/22 08:16> Clinical Impression: Abdominal pain, Gastroesophageal reflux disease Disposition: HOME SELF-CARE Condition: Good Instructions (If sedation given, give patient instructions): Abdominal Pain (ED), GERD (Gastroesophageal Reflux Disease) (ED) Prescriptions: Pantoprazole Sodium [Protonix] 20 mg PO DAILY #15 tab Referrals: Jose Greenwood MD [Primary Care Provider] - 1-2 days
[2022-09-15 07:13] LABS: Basophils % (A) 1 %; Eosinophils # (A) 0.2 k/uL (0-0.7); Eosinophils % (A) 3 %; HCT 39.7 % (34.0-46.0); HGB 13.6 gm/dL (11.4-16.0); Lymphocytes # (A) 1.9 k/uL (1.0-4.8); Lymphocytes % (A) 24 %; MCH 27.2 pg (25.0-35.0); MCHC 34.3 g/dL (31.0-37.0); MCV 79.1 fL (80.0-100.0); Mean Platelet Volume 8.2; Monocytes # (A) 0.3 k/uL (0-1.0); Monocytes % (A) 4 %; Neutrophils # (A) 5.4 k/uL (1.3-7.7); Neutrophils % (A) 67 %; Platelet Count 308 k/uL (150-450); RBC 5.02 m/uL (3.80-5.40); RDW 13.9 % (11.5-15.5); WBC 8.1 k/uL (3.8-10.6)
[2022-09-15 07:19] LABS: Appearance,Urine Clear (Clear); Bilirubin,Urine Negative (Negative); Blood,Urine Negative (Negative); Color,Urine Yellow; Glucose,Urine (UA) Negative (Negative); Ketones,Urine Negative (Negative); Leukocyte Esterase,Urine Negative (Negative); Nitrite,Urine Negative (Negative); Protein,Urine Trace (Negative); Specific Gravity,Urine 1.024 (1.001-1.035); Urobilinogen,Urine <2.0 mg/dL (<2.0)
[2022-09-15 07:23] LABS: HCG,Qualitative Serum Not Detected; INR 0.9 (<1.2); Partial Thromboplastin Time 22.2 sec (22.0-30.0); Prothrombin Time 9.8 sec (9.0-12.0)
[2022-09-15 07:24] LABS: ALT 18 U/L (4-34); AST 23 U/L (14-36); African American GFR (CKD) >90 (>60 ml/min/1.73 sqM); Albumin 4.3 g/dL (3.5-5.0); Alkaline Phosphatase 69 U/L (38-126); Amylase 59 U/L (30-110); Anion Gap 10 mmol/L; Blood Urea Nitrogen 10 mg/dL (7-17); Calcium 8.7 mg/dL (8.4-10.2); Carbon Dioxide 22 mmol/L (22-30); Chloride 107 mmol/L (98-107); Glucose 110 mg/dL (74-99); Lipase 193 U/L (23-300); Non-African American GFR(CKD) >90 (>60 ml/min/1.73 sqM); Potassium 3.9 mmol/L (3.5-5.1); Sodium 139 mmol/L (137-145); Total Bilirubin 0.4 mg/dL (0.2-1.3); Total Protein 7.1 g/dL (6.3-8.2)
--- NOTE | 2022-09-15 07:41 | XR ---
EXAMINATION TYPE: XR KUB DATE OF EXAM: 09/15/2022 COMPARISON: NONE HISTORY: Abdominal pain TECHNIQUE: Upright KUB image of the abdomen is obtained 2 radiographs. FINDINGS: Small bowel demonstrates no evidence for dilatation or air fluid levels. Gas and fecal material is seen in non-distended colon. No convincing evidence for pneumoperitoneum. No unusual calcifications. The lung bases are clear. The osseous structures are intact. IMPRESSION: Overall nonobstructive bowel gas pattern.
[2022-09-15 07:53] VITALS: BP 144/83; PULSE 80
== END 2022-09-15 08:21 | disposition home or self-care (01) ==
LOC: EC 06:27
DX: K21.9 Gastro-esophageal reflux disease without esophagitis (principal); E03.9 Hypothyroidism, unspecified; Z79.890 Hormone replacement therapy; Z88.8 Allergy status to other drugs, medicaments and biological substances
CPT/HCPCS: 36415; 80053; 82150; 83690; 85025; 85610; 85730; 81003; 84703; 74018; 96374; 96375; 96361; 99284; J2405; C9113

== ENCOUNTER → 2023-06-28 | Outpatient (CLI) | payer MEDICAID ==
[2023-06-28 14:16] LABS: HCT 41.4 % (37.2-46.3); MCH 25.6 pg (27.0-32.0); MCHC 31.4 d/dL (32.0-37.0); MCV 81.7 FL (80.0-97.0); Mean Platelet Volume 10.2 FL (9.5-12.2); NRBC Per 100 WBC 0 X 10*3/uL (0.00-0.01); Platelet Count 342 X 10*3/uL (140-440); RBC 5.07 X 10*6/uL (4.10-5.20); RDW 14.5 % (11.5-14.5); WBC 7.31 X 10*3/uL (4.50-10.00)
[2023-06-28 14:45] LABS: ALT 18 U/L (8-44); AST 21 U/L (13-35); Albumin 4.5 d/dL (3.8-4.9); Albumin/Globulin Ratio 1.61 Ratio (1.60-3.17); Alkaline Phosphatase 68 U/L (41-126); Blood Urea Nitrogen 10.5 mg/dL (9.0-27.0); Calcium 9.5 mg/dL (8.7-10.3); Chloride 105 mmol/L (96-109); Globulin 2.8 d/dL (1.6-3.3); Glucose 98 mg/dL (70-110); Potassium 4.1 mmol/L (3.5-5.5); Sodium 139 mmol/L (135-145); Total Bilirubin <0.2 mg/dL (0.3-1.2); Total Protein 7.3 d/dL (6.2-8.2)
== END | disposition home or self-care (01) ==
LOC: LABWHC1 07:05
PROVIDERS: ATTEND Family Medicine
DX: I16.0 Hypertensive urgency (principal)
CPT/HCPCS: 36415; 80053; 84439; 84443; 84480; 85027

== ENCOUNTER 2023-06-29 14:45 | Observation (INO) | payer MEDICAID ==
--- NOTE | 2023-06-29 16:38 | XR ---
EXAMINATION TYPE: XR chest 2V DATE OF EXAM: 06/29/2023 COMPARISON: None INDICATION: Chest pain chest tightness TECHNIQUE: Frontal and lateral views of the chest are obtained. FINDINGS: The heart size is normal. The pulmonary vasculature is normal. The lungs are clear. IMPRESSION: 1. No acute pulmonary process.
[2023-06-29 16:46] LABS: Basophils # (A) 0.1 k/uL (0-0.2); Basophils % (A) 1 %; Eosinophils # (A) 0.1 k/uL (0-0.7); Eosinophils % (A) 1 %; HGB 13.8 gm/dL (11.4-16.0); Lymphocytes % (A) 14 %; MCH 26.2 pg (25.0-35.0); MCHC 33.5 g/dL (31.0-37.0); MCV 78.2 fL (80.0-100.0); Mean Platelet Volume 7.5; Monocytes # (A) 0.6 k/uL (0-1.0); Monocytes % (A) 4 %; Neutrophils # (A) 11.4 k/uL (1.3-7.7); Neutrophils % (A) 80 %; Platelet Count 331 k/uL (150-450); RBC 5.25 m/uL (3.80-5.40); WBC 14.3 k/uL (3.8-10.6)
[2023-06-29 16:51] LABS: Appearance,Urine Clear (Clear); Bilirubin,Urine Negative (Negative); Blood,Urine Negative (Negative); Color,Urine Yellow; Glucose,Urine (UA) Negative (Negative); Ketones,Urine Negative (Negative); Leukocyte Esterase,Urine Negative (Negative); Nitrite,Urine Negative (Negative); PH, Urine 7.5 (5.0-8.0); Protein,Urine Trace (Negative); Specific Gravity,Urine 1.027 (1.001-1.035); Urobilinogen,Urine <2.0 mg/dL (<2.0)
[2023-06-29 17:09] LABS: ALT 21 U/L (4-34); AST 27 U/L (14-36); African American GFR (CKD) >90 (>60 ml/min/1.73 sqM); Albumin 4.8 g/dL (3.5-5.0); Alkaline Phosphatase 76 U/L (38-126); Anion Gap 11 mmol/L; Blood Urea Nitrogen 10 mg/dL (7-17); Calcium 9.5 mg/dL (8.4-10.2); Carbon Dioxide 25 mmol/L (22-30); Chloride 95 mmol/L (98-107); Glucose 129 mg/dL (74-99); Non-African American GFR(CKD) >90 (>60 ml/min/1.73 sqM); Potassium 3.7 mmol/L (3.5-5.1); Sodium 131 mmol/L (137-145); Total Bilirubin 0.7 mg/dL (0.2-1.3); Total Protein 8.4 g/dL (6.3-8.2)
[2023-06-29 17:11] LABS: Partial Thromboplastin Time 23.7 sec (22.0-30.0); Prothrombin Time 10.3 sec (9.0-12.0)
[2023-06-29] MEDS ORDERED: NALOXONE 0.4 MG/ML 1 ML VIAL IV PRN (20:10)
--- NOTE | 2023-06-29 20:38 | ED ---
General Adult HPI - General Chief complaint: Chest Pain Stated complaint: Chest Tightness,High BP Time Seen by Provider: 06/29/23 19:05 Source: patient Mode of arrival: ambulatory Limitations: no limitations - History of Present Illness Initial comments: This is a 32-year-old female with no past medical history presents emergency department for increasing chest pain and exertional shortness of breath. The patient is a cardiac nurse here in the hospital and did state that over the last 1 week she had episodes where she could not run from the cardiac Construction Administrative Assistant to 3 S. of being short of breath. The patient stated that she is intermittently lightheaded at baseline over the last several days and denied any active chest pain. The patient stated she felt "off." The patient stated that she has never had symptoms like this in the past but did state that she had preeclampsia from a previous but does not take any blood pressure medications currently. The patient was otherwise resting in bed. - Related Data Home Medications Medication Instructions Recorded Confirmed Pantoprazole Sodium [Protonix] 20 mg PO DAILY PRN 06/29/23 06/29/23 hydroCHLOROthiazide [Hydrodiuril] 12.5 mg PO DAILY 06/29/23 06/29/23 Allergies Allergy/AdvReac Type Severity Reaction Status Date / Time sesame oil Allergy Rash/Hives Verified 06/29/23 19:17 fluconazole [From Diflucan] AdvReac Mild Rash/Hives Verified 06/29/23 19:17 drospirenone [From DAVID (28)] AdvReac Rash/Hives Verified 06/29/23 19:17 ethinyl estradiol AdvReac Rash/Hives Verified 06/29/23 19:17 [From DAVID (28)] Review of Systems ROS Statement: Those systems with pertinent positive or pertinent negative responses have been documented in the HPI. ROS Other: All systems not noted in ROS Statement are negative. Past Medical History Past Medical History: No Reported History Additional Past Medical History / Comment(s): Hypothyroidism History of Any Multi-Drug Resistant Organisms: None Reported Past Surgical History: Orthopedic Surgery Additional Past Surgical History / Comment(s): IVF Past Anesthesia/Blood Transfusion Reactions: No Reported Reaction Past Psychological History: No Psychological Hx Reported Smoking Status: Never smoker Past Alcohol Use History: None Reported Past Drug Use History: None Reported - Past Family History Mother Family Medical History: Cancer, Hypertension General Exam Limitations: no limitations General appearance: alert, in no apparent distress Head exam: Present: atraumatic, normocephalic, normal inspection Eye exam: Present: normal appearance, PERRL Pupils: Present: normal accommodation ENT exam: Present: normal exam, normal oropharynx, mucous membranes moist Neck exam: Present: normal inspection, full ROM Respiratory exam: Present: normal lung sounds bilaterally Cardiovascular Exam: Present: regular rate, normal rhythm, normal heart sounds GI/Abdominal exam: Present: soft, normal bowel sounds Extremities exam: Present: normal inspection, full ROM Back exam: Present: normal inspection, full ROM Neurological exam: Present: alert, oriented X3, CN II-XII intact Psychiatric exam: Present: normal affect, normal mood Skin exam: Present: warm, dry Course Vital Signs 06/29/23 06/29/23 15:14 19:43 Temperature 98 F Pulse Rate 100 100 Respiratory 20 18 Rate Blood Pressure 150/83 133/93 O2 Sat by Pulse 98 98 Oximetry EKG Findings - EKG Comments: EKG Findings:: An EKG was obtained and was interpreted by myself showing a rate of 82, OR interval 152, QR mu-ism 89 and QTC of 397. This EKG showed a normal sinus rhythm with no ST segment elevation or depression noted. Medical Decision Making - Medical Decision Making Was pt. sent in by a medical professional or institution ([facility], CLIENT SUCCESS SPECIALIST, urgent care, hospital, or senior living...) When possible be specific @ -No Did you speak to anyone other than the patient for history (EMS, parent, family, police, friend...)? What history was obtained from this source @ -No Did you review nursing and triage notes (agree or disagree)? Why? @ -I reviewed and agree with nursing and triage notes Were old charts reviewed (outside hosp., previous admission, EMS record, old EKG, old radiological studies, urgent care reports/EKG's, senior living records)? Report findings @ -No old charts were reviewed Differential Diagnosis (chest pain, altered mental status, abdominal pain women, abdominal pain men, vaginal bleeding, weakness, fever, dyspnea, syncope, headache, dizziness, GI bleed, back pain, seizure, CVA, palpatations, mental health)? @ -ACS, chest muscle strain, pneumonia, congestive heart failure EKG interpreted by me (3pts min.). @ -As above X-rays interpreted by me (1pt min.). @ -Chest x-ray was obtained and was interpreted by myself showing no acute proc ess. CT interpreted by me (1pt min.). @ -None done U/S interpreted by me (1pt. min.). @ -None done What testing was considered but not performed or refused? (CT, X-rays, U/S, labs)? Why? @ -None What meds were considered but not given or refused? Why? @ -None Did you discuss the management of the patient with other professionals (professionals i.e. , PA, CLIENT SUCCESS SPECIALIST, lab, RT, psych nurse, perinatal social worker, electroplater, teacher, environmental technical officer, renal case manager)? Give summary @ -Yes, the primary care physician was contacted regarding the patient observation and he did agree. Was smoking cessation discussed for >3mins.? @ -No Was critical care preformed (if so, how long)? @ -No Were there social determinants of health that impacted care today? How? (Homelessness, low income, unemployed, alcoholism, drug addiction, transporta tion, low edu. Level, literacy, decrease access to med. care, long-term, rehab)? @ -No Was there de-escalation of care discussed even if they declined (Discuss DNR or withdrawal of care, Hospice)? DNR status @ -No What co-morbidities impacted this encounter? (DM, HTN, Smoking, COPD, CAD, Cancer, CVA, ARF, Chemo, Hep., AIDS, mental health diagnosis, sleep apnea, morbid obesity)? @ -None Was patient admitted / discharged? Hospital course, mention meds given and route, prescriptions, significant lab abnormalities, going to OR and other pertinent info. @ -The patient was seen and evaluated emergency department. Physical exam, the patient was resting in bed without any acute distress. Vital signs admission were stable. All workup was largely within normal limits however the patient had continued symptoms on standing and was concerned about these. The patient w as offered observation to be seen by cardiology and she did agree to this. The patient's primary care physician was also contacted and agreed. The patient was placed in observation to be seen and evaluated by cardiology. Undiagnosed new problem with uncertain prognosis? @ -No Drug Therapy requiring intensive monitoring for toxicity (Heparin, Nitro, Insulin, Cardizem)? @ -No Were any procedures done? @ -No Diagnosis/symptom? @ -Chest pain, exertional shortness of breath, rule out ACS Acute, or Chronic, or Acute on Chronic? @ -Acute Uncomplicated (without systemic symptoms) or Complicated (systemic symptoms)? @ -Complicated Side effects of treatment? @ -No Exacerbation, Progression, or Severe Exacerbation? @ -No Poses a threat to life or bodily function? How? (Chest pain, USA, MA, pneumonia, PE, COPD, DKA, ARF, appy, cholecystitis, CVA, Diverticulitis, Homicidal, Kathleen icidal, threat to staff... and all critical care pts) @ -Yes, continued chest pain and ACS can lead to permanent damage and possible . - Lab Data Result diagrams: 06/29/23 16:25 06/29/23 16:25 Lab Results 06/29/23 06/29/23 06/29/23 Range/Units 15:19 16:25 16:25 WBC 14.3 H (3.8-10.6) k/uL RBC 5.25 (3.80-5.40) m/uL Hgb 13.8 (11.4-16.0) gm/dL Hct 41.0 (34.0-46.0) % MCV 78.2 L (80.0-100.0) fL MCH 26.2 (25.0-35.0) pg MCHC 33.5 (31.0-37.0) g/dL RDW 14.0 (11.5-15.5) % Plt Count 331 (150-450) k/uL MPV 7.5 Neutrophils % 80 % Lymphocytes % 14 % Monocytes % 4 % Eosinophils % 1 % Basophils % 1 % Neutrophils # 11.4 H (1.3-7.7) k/uL Lymphocytes # 2.0 (1.0-4.8) k/uL Monocytes # 0.6 (0-1.0) k/uL Eosinophils # 0.1 (0-0.7) k/uL Basophils # 0.1 (0-0.2) k/uL PT 10.3 (9.0-12.0) sec INR 1.0 (<1.2) APTT 23.7 (22.0-30.0) sec Sodium (137-145) mmol/L Potassium (3.5-5.1) mmol/L Chloride (98-107) mmol/L Carbon Dioxide (22-30) mmol/L Anion Gap mmol/L BUN (7-17) mg/dL Creatinine (0.52-1.04) mg/dL Est GFR (CKD-EPI)AfAm (>60 ml/min/1.73 sqM) Est GFR (CKD-EPI)NonAf (>60 ml/min/1.73 sqM) Glucose (74-99) mg/dL Calcium (8.4-10.2) mg/dL Magnesium (1.6-2.3) mg/dL Total Bilirubin (0.2-1.3) mg/dL AST (14-36) U/L ALT (4-34) U/L Alkaline Phosphatase (38-126) U/L Troponin I (0.000-0.034) ng/mL Total Protein (6.3-8.2) g/dL Albumin (3.5-5.0) g/dL TSH (0.465-4.680) mIU/L Urine Color Urine Appearance (Clear) Urine pH (5.0-8.0) Ur Specific [place] (1.001-1.035) Urine Protein (Negative) Urine Glucose (UA) (Negative) Urine Ketones (Negative) Urine Blood (Negative) Urine Nitrite (Negative) Urine Bilirubin (Negative) Urine Urobilinogen (<2.0) mg/dL Ur Leukocyte Esterase (Negative) Urine HCG, Qual Not Detected (Not Detectd) Coronavirus (PCR) (Not Detectd) 06/29/23 06/29/23 06/29/23 Range/Units 16:25 16:25 16:25 WBC (3.8-10.6) k/uL RBC (3.80-5.40) m/uL Hgb (11.4-16.0) gm/dL Hct (34.0-46.0) % MCV (80.0-100.0) fL MCH (25.0-35.0) pg MCHC (31.0-37.0) g/dL RDW (11.5-15.5) % Plt Count (150-450) k/uL MPV Neutrophils % % Lymphocytes % % Monocytes % % Eosinophils % % Basophils % % Neutrophils # (1.3-7.7) k/uL Lymphocytes # (1.0-4.8) k/uL Monocytes # (0-1.0) k/uL Eosinophils # (0-0.7) k/uL Basophils # (0-0.2) k/uL PT (9.0-12.0) sec INR (<1.2) APTT (22.0-30.0) sec Sodium 131 L (137-145) mmol/L Potassium 3.7 (3.5-5.1) mmol/L Chloride 95 L (98-107) mmol/L Carbon Dioxide 25 (22-30) mmol/L Anion Gap 11 mmol/L BUN 10 (7-17) mg/dL Creatinine 0.62 (0.52-1.04) mg/dL Est GFR (CKD-EPI)AfAm >90 (>60 ml/min/1.73 sqM) Est GFR (CKD-EPI)NonAf >90 (>60 ml/min/1.73 sqM) Glucose 129 H (74-99) mg/dL Calcium 9.5 (8.4-10.2) mg/dL Magnesium 2.0 (1.6-2.3) mg/dL Total Bilirubin 0.7 (0.2-1.3) mg/dL AST 27 (14-36) U/L ALT 21 (4-34) U/L Alkaline Phosphatase 76 (38-126) U/L Troponin I <0.012 (0.000-0.034) ng/mL Total Protein 8.4 H (6.3-8.2) g/dL Albumin 4.8 (3.5-5.0) g/dL TSH 0.769 (0.465-4.680) mIU/L Urine Color Yellow Urine Appearance Clear (Clear) Urine pH 7.5 (5.0-8.0) Ur Specific [place] 1.027 (1.001-1.035) Urine Protein Trace H (Negative) Urine Glucose (UA) Negative (Negative) Urine Ketones Negative (Negative) Urine Blood Negative (Negative) Urine Nitrite Negative (Negative) Urine Bilirubin Negative (Negative) Urine Urobilinogen <2.0 (<2.0) mg/dL Ur Leukocyte Esterase Negative (Negative) Urine HCG, Qual (Not Detectd) Coronavirus (PCR) (Not Detectd) 06/29/23 Range/Units 19:45 WBC (3.8-10.6) k/uL RBC (3.80-5.40) m/uL Hgb (11.4-16.0) gm/dL Hct (34.0-46.0) % MCV (80.0-100.0) fL MCH (25.0-35.0) pg MCHC (31.0-37.0) g/dL RDW (11.5-15.5) % Plt Count (150-450) k/uL MPV Neutrophils % % Lymphocytes % % Monocytes % % Eosinophils % % Basophils % % Neutrophils # (1.3-7.7) k/uL Lymphocytes # (1.0-4.8) k/uL Monocytes # (0-1.0) k/uL Eosinophils # (0-0.7) k/uL Basophils # (0-0.2) k/uL PT (9.0-12.0) sec INR (<1.2) APTT (22.0-30.0) sec Sodium (137-145) mmol/L Potassium (3.5-5.1) mmol/L Chloride (98-107) mmol/L Carbon Dioxide (22-30) mmol/L Anion Gap mmol/L BUN (7-17) mg/dL Creatinine (0.52-1.04) mg/dL Est GFR (CKD-EPI)AfAm (>60 ml/min/1.73 sqM) Est GFR (CKD-EPI)NonAf (>60 ml/min/1.73 sqM) Glucose (74-99) mg/dL Calcium (8.4-10.2) mg/dL Magnesium (1.6-2.3) mg/dL Total Bilirubin (0.2-1.3) mg/dL AST (14-36) U/L ALT (4-34) U/L Alkaline Phosphatase (38-126) U/L Troponin I (0.000-0.034) ng/mL Total Protein (6.3-8.2) g/dL Albumin (3.5-5.0) g/dL TSH (0.465-4.680) mIU/L Urine Color Urine Appearance (Clear) Urine pH (5.0-8.0) Ur Specific [place] (1.001-1.035) Urine Protein (Negative) Urine Glucose (UA) (Negative) Urine Ketones (Negative) Urine Blood (Negative) Urine Nitrite (Negative) Urine Bilirubin (Negative) Urine Urobilinogen (<2.0) mg/dL Ur Leukocyte Esterase (Negative) Urine HCG, Qual (Not Detectd) Coronavirus (PCR) Not Detected (Not Detectd) Disposition Clinical Impression: Chest pain Disposition: ADMITTED IP TO THIS [facility] Condition: Stable Is patient prescribed a controlled substance at d/c from ED?: No Referrals: Jose Greenwood MD [Primary Care Provider] - 1-2 days Time of Disposition: 19:00 Decision to Admit Reason: Admit from EC Decision Date: 06/29/23 Decision Time: 19:00
[2023-06-30] MEDS ORDERED: PANTOPRAZOLE 40 MG/10 ML VIAL IVP SCH (09:30)
--- NOTE | 2023-06-30 09:36 | P.CRDCN ---
History of Present Illness History of present illness: HISTORY OF PRESENT ILLNESS: This is a 32-year-old female with a past medical history significant for preeclampsia during . Patient does not follow with a instructional interventionist. We have been asked to see the patient in consultation for chest pain. Patient examined at the bedside in the emergency room. Patient reports she has been having chest pain and shortness of breath for approximately one month. She states she initially attributed this to anxiety and was more cognizant of her triggers and trying to reduce her anxiety however her symptoms have persisted. 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 She states that she was unable to walk from one side of the hospital to the other without having to stop and take a break due to dyspnea. She states that if she sits down to rest her symptoms resolved however it is taking longer for her symptoms to resolve that it did a few weeks ago. Yesterday she reports having some oozing as an pounding in the chest yesterday. She states like she felt she was going to pass out but has not had any syncopal episodes. She is a nonsmoker. She reports a family history of coronary artery disease in her dad, grandpar ents, and uncle. She reports her uncle at age 48 of a heart attack. * EKG reveals sinus mechanism with nonspecific ST-T wave changes including T- wave inversions in inferior leads and V3V4. Mild ST depression in lead II. No previous EKG available for comparison * Chest xray negative for acute process * Laboratory data: WBC 14.3. Hemoglobin 13.8. Platelet count 331. Sodium 131. Potassium 3.7. BUN 10. Creatinine 0.62. Magnesium 2.0. Troponin negative 3. TSH 0.769. * Current home cardiac medications include hydrochlorothiazide 12.5 mg daily REVIEW OF SYSTEMS: At the time of my exam: CONSTITUTIONAL: Denies fever or chills. HEENT: Denies blurred vision, vision changes, or eye pain. Denies hemoptysis CARDIOVASCULAR: Denies chest pain. Denies orthopnea. Denies PND. Denies palpitations RESPIRATORY: Denies shortness of breath. GASTROINTESTINAL: Denies abdominal pain. Denies nausea or vomiting. HEMATOLOGIC: Denies bleeding disorders. GENITOURINARY: Denies any blood in urine. SKIN: Denies pruitis. Denies rash. PHYSICAL EXAM: VITAL SIGNS: Reviewed. GENERAL: Well-developed in no acute distress. HEENT: Head is normocephalic. Pupils are equal, round. Sclerae anicteric. Mucous membranes of the mouth are moist. Neck supple. No JVD or thyromegaly LUNGS: Respirations even and unlabored. Lungs essentially clear to auscultation bilaterally. HEART: Regular rate and rhythm. S1 and S2 heard. ABDOMEN: Soft. Nondistended. Nontender. EXTREMITIES: Normal range of motion. No clubbing or cyanosis. Peripheral pulses intact. No lower extremity edema NEUROLOGIC: Awake and alert. Oriented x 3. ASSESSMENT: Chest pain and SOB, x 1 month, troponin negative 3 History of preeclampsia during Family history of premature coronary artery disease PLAN: An acute coronary event has been ruled out Obtain 2-D echo to assess cardiac structure and function Patient to undergo stress echocardiogram today If stress test is negative and 2-D echo does not reveal any significant abnor malities, the patient may be discharged home today from a cardiac standpoint Nurse practitioner note has been reviewed by physician. Signing provider agrees with the documented findings, assessment, and plan of care. Past Medical History Past Medical History: No Reported History Additional Past Medical History / Comment(s): Hypothyroidism History of Any Multi-Drug Resistant Organisms: None Reported Past Surgical History: Orthopedic Surgery Additional Past Surgical History / Comment(s): IVF Past Anesthesia/Blood Transfusion Reactions: No Reported Reaction Past Psychological History: No Psychological Hx Reported Smoking Status: Never smoker Past Alcohol Use History: None Reported Past Drug Use History: None Reported - Past Family History Mother Family Medical History: Cancer, Hypertension Medications and Allergies Home Medications Medication Instructions Recorded Confirmed Type Pantoprazole Sodium [Protonix] 20 mg PO DAILY PRN 06/29/23 06/29/23 History hydroCHLOROthiazide [Hydrodiuril] 12.5 mg PO DAILY 06/29/23 06/29/23 History Allergies Allergy/AdvReac Type Severity Reaction Status Date / Time sesame oil Allergy Rash/Hives Verified 06/29/23 19:17 fluconazole [From Diflucan] AdvReac Mild Rash/Hives Verified 06/29/23 19:17 drospirenone [From DAVID (28)] AdvReac Rash/Hives Verified 06/29/23 19:17 ethinyl estradiol AdvReac Rash/Hives Verified 06/29/23 19:17 [From [facility] (28)] Physical Exam Vitals: Vital Signs Temp Pulse Resp BP Pulse Ox 06/30/23 07:41 98.6 F 96 16 133/94 98 06/30/23 02:29 133/85 06/30/23 00:25 98 16 130/82 06/29/23 19:43 100 18 133/93 98 06/29/23 15:14 98 F 100 20 150/83 98 Intake and Output 06/29/23 06/30/23 06/30/23 22:59 06:59 14:59 Other: Weight 85.275 kg Results 06/29/23 16:25 06/29/23 16:25 Cardiac Enzymes 06/29/23 06/29/23 06/30/23 Range/Units 16:25 16:25 02:15 AST 27 (14-36) U/L Troponin I <0.012 <0.012 (0.000-0.034) ng/mL 06/30/23 Range/Units 06:24 AST (14-36) U/L Troponin I <0.012 (0.000-0.034) ng/mL Coagulation 06/29/23 Range/Units 16:25 PT 10.3 (9.0-12.0) sec APTT 23.7 (22.0-30.0) sec CBC 06/29/23 Range/Units 16:25 WBC 14.3 H (3.8-10.6) k/uL RBC 5.25 (3.80-5.40) m/uL Hgb 13.8 (11.4-16.0) gm/dL Hct 41.0 (34.0-46.0) % Plt Count 331 (150-450) k/uL Comprehensive Metabolic Panel 06/29/23 Range/Units 16:25 Sodium 131 L (137-145) mmol/L Potassium 3.7 (3.5-5.1) mmol/L Chloride 95 L (98-107) mmol/L Carbon Dioxide 25 (22-30) mmol/L BUN 10 (7-17) mg/dL Creatinine 0.62 (0.52-1.04) mg/dL Glucose 129 H (74-99) mg/dL Calcium 9.5 (8.4-10.2) mg/dL AST 27 (14-36) U/L ALT 21 (4-34) U/L Alkaline Phosphatase 76 (38-126) U/L Total Protein 8.4 H (6.3-8.2) g/dL Albumin 4.8 (3.5-5.0) g/dL Current Medications Generic Name Dose Route Start Last Admin Trade Name Freq PRN Reason Stop Dose Admin Naloxone HCl 0.2 mg 06/29/23 20:10 Naloxone 0.4 Mg/Ml 1 Ml Vial IV Q2M PRN Opioid Reversal Intake and Output 06/29/23 06/30/23 06/30/23 22:59 06:59 14:59 Other: Weight 85.275 kg 06/29/23 16:25 06/29/23 16:25
[2023-06-30] MEDS ORDERED: hydroCHLOROthiazide 12.5 MG CAP PO SCH (10:30)
--- NOTE | 2023-06-30 11:45 | P.HPIM ---
History of Present Illness H&P Date: 06/30/23 History and Physical and Discharge Summary: This is a 32-year-old female with past medical history significant for hypothyroidism, preeclampsia with prior admitted with worsening chest pain accompanied by shortness of breath, intermittent lightheadedness, yesterday at work. Her blood pressure at work 153/90. Patient initially presented to PCP office last week, related to chest pressure and exertional shortness of breath fluctuating over the last month; she thought it might be stress induced. Discovered to have hypertensive urgency with blood pressure 180s/100. Hydrochlorothiazide initiated and patient was scheduled for echo, stress. Troponins negative 3, EKG reporting sinus rhythm with nonspecific ST/T wave abnormality. Chest x-ray reporting no acute pulmonary process. Reports this morning her heart rates up into the 120s with ambulating-asymptomatic. Denies any recent illness, upper respiratory infection cough congestion .denies nausea vomiting or diarrhea .denies abdominal pain.Currently denies chest pain, palpitations or shortness of breath. Maintaining O2 sats in the high 90s on room air. WBC 14.3, hemoglobin 13.8, platelets 331, INR 1, sodium 131, potassium 3.7, bicarb 25, BUN 10, creatinine 0.62, glucose 129, magnesium 2. UA negative coronavirus not detected. Evaluated by cardiology. 2-D Echo and stress echo pending. Review of Systems ROS Statement: Those systems with pertinent positive or pertinent negative responses have been documented in the HPI. ROS Other: All systems not noted in ROS Statement are negative. Past Medical History Past Medical History: No Reported History Additional Past Medical History / Comment(s): Hypothyroidism History of Any Multi-Drug Resistant Organisms: None Reported Past Surgical History: Orthopedic Surgery Additional Past Surgical History / Comment(s): IVF Past Anesthesia/Blood Transfusion Reactions: No Reported Reaction Past Psychological History: No Psychological Hx Reported Smoking Status: Never smoker Past Alcohol Use History: None Reported Past Drug Use History: None Reported - Past Family History Mother Family Medical History: Cancer, Hypertension Medications and Allergies Home Medications Medication Instructions Recorded Confirmed Type Pantoprazole Sodium [Protonix] 20 mg PO DAILY PRN 06/29/23 06/29/23 History hydroCHLOROthiazide [Hydrodiuril] 12.5 mg PO DAILY 06/29/23 06/29/23 History Allergies Allergy/AdvReac Type Severity Reaction Status Date / Time sesame oil Allergy Rash/Hives Verified 06/29/23 19:17 fluconazole [From Diflucan] AdvReac Mild Rash/Hives Verified 06/29/23 19:17 drospirenone [From DAVID (28)] AdvReac Rash/Hives Verified 06/29/23 19:17 ethinyl estradiol AdvReac Rash/Hives Verified 06/29/23 19:17 [From DAVID (28)] Physical Exam Vitals: Vital Signs Temp Pulse Resp BP Pulse Ox 06/30/23 08:30 96 34 H 06/30/23 08:00 99 16 06/30/23 07:41 98.6 F 98 34 H 133/94 98 06/30/23 02:29 133/85 06/30/23 00:25 98 16 130/82 06/29/23 19:43 100 18 133/93 98 06/29/23 15:14 98 F 100 20 150/83 98 Intake and Output 06/29/23 06/30/23 06/30/23 22:59 06:59 14:59 Other: Weight 85.275 kg PHYSICAL EXAM: VITAL SIGNS: [As above] GENERAL: Pleasant 32-year-old female, sitting up in bed, no acute distress HEENT: Normocephalic, Conjunctivae normal. eyes normal. NECK: Supple, No JVD. No thyroid enlargement. No LNs CARDIOVASCULAR: S1, S2 regular. No murmur RESPIRATION: Unlabored, Breath sounds diminished in the bases. No rhonchi or crackles. No bronchial breathing. ABDOMEN: Soft, nontender . No guarding. no masses palpable. No ascites, No hepatosplenomegaly.Bowel sounds heard. LEGS: No edema. no swelling PSYCHIATRY: Alert and oriented X3, mood and affect normal. NERVOUS SYSTEM: Cranial N 2-12 grossly normal. No focal deficits. Strength and sensation grossly intact. Skin: Warm and dry, no rash Results CBC & Chem 7: 06/29/23 16:25 06/29/23 16:25 Labs: Abnormal Lab Results - Last 24 Hours (Table) 06/29/23 06/29/23 06/29/23 Range/Units 16:25 16:25 16:25 WBC 14.3 H (3.8-10.6) k/uL MCV 78.2 L (80.0-100.0) fL Neutrophils # 11.4 H (1.3-7.7) k/uL Sodium 131 L (137-145) mmol/L Chloride 95 L (98-107) mmol/L Glucose 129 H (74-99) mg/dL Total Protein 8.4 H (6.3-8.2) g/dL Urine Protein Trace H (Negative) Assessment and Plan Assessment: Acute chest pain accompanied by shortness of breath, recently diagnosed with hypertension urgency outpatient in clinic with HCTZ initiated, negative troponins, in a patient with family history of CAD. Leukocytosis mild, suspect reactive Hyponatremia mild Hypothyroidism History of preeclampsia with prior Obesity, BMI 34.4 Plan: Continue on current medication regime ,monitoring and symptomatic treatment.NPO, echo and stress tests pending. Discharge planning in progress pending echo, stress test results, final DC recommendations and clearance per cardiology. Discharge Medication List Pantoprazole Sodium [Protonix] 20 mg PO DAILY PRN 06/29/23 [History] hydroCHLOROthiazide [Hydrodiuril] 12.5 mg PO DAILY 06/29/23 [History] The impression and plan of care has been dictated as directed. : I performed a history and examination of this patient, discussed the same with the dictator. I agree with the dictator's note ,documented as a scribe. Any additional findings or plans will be noted.
[2023-06-30 12:47] VITALS: RESP 17; TEMP 98.4
--- NOTE | 2023-06-30 14:50 | CA ---
Transthoracic Echo Report Name: Hallie Arora Age: 32 Gender: F : 1990 Exam Date: 06/30/2023 12:19 Exam Location: [facility] Ht (in): 62 Wt (lb): 188 Ordering Physician: Ila Moralez Attending/Referring Phys: [id number], Naomy Python Java Developer Jocelyn Durbin RDCS Procedure CPT: Indications: LV function, CP Cardiac Hx: Technical Quality: Good Contrast 1: Total Dose (mL): Contrast 2: Total Dose (mL): MEASUREMENTS (Male / Female) Normal Values 2D ECHO LV Diastolic Diameter PLAX 3.4 cm 4.2 - 5.9 / 3.9 - 5.3 cm LV Systolic Diameter PLAX 2.3 cm IVS Diastolic Thickness 1.2 cm 0.6 - 1.0 / 0.6 - 0.9 cm LVPW Diastolic Thickness 1.3 cm 0.6 - 1.0 / 0.6 - 0.9 cm LV Relative Wall Thickness 0.7 RV Internal Dim ED PLAX 2.6 cm LA Systolic Diameter LX 3.0 cm 3.0 - 4.0 / 2.7 - 3.8 cm LV Diastolic Volume MOD 4C 69.9 cm??? LV Systolic Volume MOD 4C 36.7 cm??? LV Ejection Fraction MOD 4C 47.5 % LV Cardiac Index MOD 4C 1518.0 cm???/min???m??? LV Diastolic Length 4C 8.6 cm LV Systolic Length 4C 6.8 cm LV Diastolic Volume MOD 2C 39.6 cm??? LV Systolic Volume MOD 2C 14.7 cm??? LV Ejection Fraction MOD 2C 62.8 % LV Cardiac Index MOD 2C 1137.3 cm???/min???m??? LV Diastolic Length 2C 8.1 cm LV Systolic Length 2C 6.8 cm LA Volume 20.7 cm??? 18 - 58 / 22 - 52 cm??? M-MODE Aortic Root Diameter MM 3.0 cm MV E Point Septal Separation 0.8 cm AV Cusp Separation MM 2.1 cm DOPPLER AV Peak Velocity 126.7 cm/s AV Peak Gradient 6.4 mmHg MV Area PHT 2.2 cm??? Mitral E Point Velocity 58.9 cm/s Mitral A Point Velocity 73.4 cm/s Mitral E to A Ratio 0.8 MV Deceleration Time 351.2 ms MV E' Velocity 7.0 cm/s Mitral E to MV E' Ratio 8.4 TR Peak Velocity 242.6 cm/s TR Peak Gradient 23.5 mmHg Right Ventricular Systolic Press 28.4 mmHg FINDINGS Left Ventricle Left ventricular ejection fraction is estimated at 55-60 %. Left ventricular cavity size normal. Normal left ventricular wall motion. Mildly increased left ventricular wall thickness. Right Ventricle Normal right ventricular size. Right ventricular systolic pressure within normal limits. Right Atrium Normal right atrial size. Left Atrium Normal left atrial size. Mitral Valve Structurally normal mitral valve. No mitral stenosis, or prolapse.trace to mild mitral regurgitation. Aortic Valve Trileaflet aortic valve. No aortic valve stenosis or regurgitation. Tricuspid Valve Structurally normal tricuspid valve. Trace to mild tricuspid regurgitation. Pulmonic Valve Structurally normal pulmonic valve. No pulmonic regurgitation. Pericardium Normal pericardium. No pericardial effusion. Aorta Normal size aortic root and proximal ascending aorta. CONCLUSIONS 1. Normal left ventricle size and systolic function 2. Trace to mild mitral and tricuspid regurgitation Previewed by: Dr. Nika Galaviz MD (Electronically Signed) Final Date: 30 June 2023 14:50
--- NOTE | 2023-06-30 14:53 | CA ---
Stress Echo Report Hallie Arora Age: 32 Gender: F : 1990 Exam Date: 06/30/2023 12:03 Exam Location: [facility] Ht (in): 62 Wt (lb): 188 Ordering Physician: Ila Moralez Referring Physician: [id number] Sales Representative: Jocelyn Durbin RDCS Technologist Procedure CPT: Indication: CP, SOB ICD-9 Codes: Rhythm: Patient History: CHEST PRESSURE, DIFFICULTY IN BREATHING, PALPITATIONS, HTN, FAMILY HX OF HEART DISEASE Cardiac Medications: HZTZ Medications in past 24 hours: Contrast: Stress Results Protocol: [place] Total dose(mL): Exercise Duration (min:sec): 7:[address] Depression (mm): Angina Score: Marshall Score: METS: 8.5 Resting HR: 95 Resting BP: 118 / 74 Peak HR: 177 Peak BP: 218 / 49 Max Predicted HR: 186 95 % Max Predicted HR Target HR: 158 Double Product: [id number] Stress Summary: The patient's target heart rate was achieved The hemodynamic response to exercise was normal BP Response: Reason for Termination: MAX EXERTION/TARGET HR Cardiac Symptoms: NO SYMPTOMS ECG Analysis Resting ECG: Normal sinus rhythm, Resting ST/T wave changes Stress ECG: Non-diagnostic ECG response due to resting abnormalities Arrhythmia: Occasional APCs Echo Analysis Resting Echo: Normal resting echocardiogram. Peak Echo Analysis: Normal wall thickening and motion MEASUREMENTS (Male/Female) Normal Values CONCLUSIONS 1. Nondiagnostic electrocardiographic Stress testing 2. Normal stress echocardiogram with no evidence of stress- induced ischemia Dr. Nika Galaviz MD (Electronically Signed) Final Date: 30 June 2023 14:52
[2023-06-30 15:21] VITALS: BP 128/93; PULSE 94
== END 2023-06-30 15:23 | disposition home or self-care (01) ==
LOC: EC 14:45 → 6NMEDSUR 20:12
PROVIDERS: ADMIT Family Medicine; ATTEND Family Medicine
DX: I16.0 Hypertensive urgency (principal); R07.89 Other chest pain; R06.02 Shortness of breath; E03.9 Hypothyroidism, unspecified; E87.1 Hypo-osmolality and hyponatremia; D72.829 Elevated white blood cell count, unspecified; E66.9 Obesity, unspecified; Z68.34 Body mass index [BMI] 34.0-34.9, adult; Z87.59 Personal history of other complications of pregnancy, childbirth and the puerperium; Z82.49 Family history of ischemic heart disease and other diseases of the circulatory system; Z80.9 Family history of malignant neoplasm, unspecified; Z79.899 Other long term (current) drug therapy; Z88.8 Allergy status to other drugs, medicaments and biological substances; Z91.018 Allergy to other foods
CPT/HCPCS: 96374; 99285; 36415; 93005; 93306; 93351; 80053; 84443; 83735; 84484 ×2; 85025; 85610; 85730; 81003; 81025; 87635; 71046; G0378 ×2; C9113

== ENCOUNTER → 2023-07-08 | Outpatient (CLI) | payer MEDICAID ==
--- NOTE | 2023-07-09 08:37 | MR ---
EXAMINATION TYPE: MR brain wo con DATE OF EXAM: 07/08/2023 8:12 PM COMPARISON: HISTORY: Dizziness and high blood pressure for 1 month, paresthesia of skin. Multiplanar and multispin-echo imaging of the brain was performed . The ventricles, basal cisterns and sulci overlying the cerebral convexities are within normal limits. There is no evidence for midline shift or mass effect. Acute intracranial hemorrhage or extra-axial collection is not evident. The brain parenchyma reveals 2 tiny foci of increased signal on T2 FLAIR data set measuring less than 2.5 mm within the right rosenberg radiata and right external capsule which are too small to appropriate ly characterize. No acute edema is identified. The paranasal sinuses and mastoid air cells are well-aerated. IMPRESSION: 2 tiny foci of increased signal on T2 FLAIR data set measuring less than 2.5 mm within the right baljinder na radiata and right external capsule which are too small to appropriately characterize. Otherwise un remarkable study
== END | disposition home or self-care (01) ==
LOC: RADMRIMAIN 19:05
PROVIDERS: ATTEND Family Medicine
DX: R42 Dizziness and giddiness (principal); R20.2 Paresthesia of skin
CPT/HCPCS: 70551

== ENCOUNTER → 2023-07-25 | Outpatient (CLI) | payer MEDICAID ==
--- NOTE | 2023-07-25 11:26 | CA ---
Transthoracic Echo Report Name: Hallie Arora Age: 33 Gender: F : 1990 Exam Date: 07/25/2023 08:35 Exam Location: [facility] Ht (in): 62 Wt (lb): 180 Ordering Physician: David Lara MD ([id number]) Attending/Referring Phys: David Lara MD ([id number]) Assayer Helper Miesha Saleem RDCS Procedure CPT: Indications: I10 HYPERTENSION Cardiac Hx: Technical Quality: Good Contrast 1: Total Dose (mL): Contrast 2: Total Dose (mL): MEASUREMENTS (Male / Female) Normal Values 2D ECHO LV Diastolic Diameter PLAX 4.3 cm 4.2 - 5.9 / 3.9 - 5.3 cm LV Systolic Diameter PLAX 2.4 cm IVS Diastolic Thickness 1.0 cm 0.6 - 1.0 / 0.6 - 0.9 cm LVPW Diastolic Thickness 1.1 cm 0.6 - 1.0 / 0.6 - 0.9 cm LV Relative Wall Thickness 0.5 FINDINGS Left Ventricle LIMITED STUDY.Normal Left ventricular size, wall thickness, systolic function with no obvious regional wall motion abnormalities. Normal Left ventricular diastolic filling pattern. Left ventricular ejection fraction is estimated at 55-60 %. Right Ventricle Right Atrium Left Atrium Mitral Valve Aortic Valve Tricuspid Valve Pulmonic Valve Pericardium No pericardial effusion. Aorta Normal size aortic root and proximal ascending aorta. No evidence of aortic coarctation. CONCLUSIONS This is a limited study. The LV systolic function is normal. The ejection fraction is 55-60% No evidence of pericardial effusion The aortic root appears to be within normal limits Previewed by: Dr. Daniel Hernandez MD (Electronically Signed) Final Date: 25 July 2023 11:25
== END | disposition home or self-care (01) ==
LOC: RADECHMAIN 08:26
PROVIDERS: ATTEND Internal Medicine Clinical Cardiac Electrophysiology
DX: I10 Essential (primary) hypertension (principal); I20.8 Other forms of angina pectoris
CPT/HCPCS: 93308

== ENCOUNTER → 2024-12-11 | Outpatient (CLI) | payer MEDICAID ==
[2024-12-11 15:18] VITALS: BP 131/85; PULSE 104; RESP 16; TEMP 98
--- NOTE | 2024-12-11 15:53 | P.SLEEP ---
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 Over the past few years, the patient has noted that she has been excessively fatigued and she is becoming more sleepy as she has gained also around 20 pounds over the past 1 year. She is snoring and she veers to himself snore. She prefers to sleep on her abdomen. At times, she sleep talks and she is quite restless in bed. He has chronic issues with anxiety. She is currently on Pristiq. No history of depression. She goes to bed at around 11 PM and wakes up 6:15 AM in the morning. On weekends, she sees between midnight and 8 AM in the morning. No grinding of the teeth. No nocturia. Sleep is fragmented. D oes not fall asleep while driving. However, she can easily fall asleep if she is on the passenger seat. His current Fullerton score is at 7. Her comorbidities include hypertension. No heart disease. No stroke. No congestion or heart failure. No head trauma. No substance abuse. No alcoholism. No smoking. No naps during the day. She is a nose breather. Review of Systems Constitutional: Reports daytime sleepiness, Reports fatigue, Reports weight gain Eyes: denies as per HPI, denies blurred vision, denies bulging eye, denies decreased vision, denies diplopia, denies discharge, denies dry eye, denies irritation, denies itching, denies pain, denies photophobia, denies loss of peripheral vision, denies loss of vision, denies tunnel vision/blind spots Ears: deny: decreased hearing, ear discharge, earache, tinnitus Ears, nose, mouth and throat: Reports as per HPI Breasts: absent: as per HPI, change in shape, gynecomastia, masses, nipple discharge, pain, skin changes, swelling Cardiovascular: Reports as per HPI Respiratory: Reports as per HPI Gastrointestinal: Reports as per HPI Genitourinary: Reports as per HPI Menstruation: Reports as per HPI Musculoskeletal: Reports as per HPI Musculoskeletal: absent: ankle pain, ankle stiffness, ankle swelling, as per HPI, elbow pain, elbow stiffness, elbow swelling, foot pain, foot stiffness, foot swelling, hand pain, hand stiffness, hand swelling, hip pain, hip stiffness, hip swelling, knee pain, knee stiffness, knee swelling, shoulder pain, shoulder stiffness, shoulder swelling, wrist pain, wrist stiffness, wrist swelling Integumentary: Reports as per HPI Neurological: Reports as per HPI Psychiatric: Reports anxiety Endocrine: Reports fatigue Hematologic/Lymphatic: Reports as per HPI Allergic/Immunologic: Reports as per HPI Past Medical History Past Medical History: GERD/Reflux, Hypertension Additional Past Medical History / Comment(s): Hypothyroidism History of Any Multi-Drug Resistant Organisms: None Reported Past Surgical History: Orthopedic Surgery Additional Past Surgical History / Comment(s): IVF Past Anesthesia/Blood Transfusion Reactions: No Reported Reaction Past Psychological History: No Psychological Hx Reported Smoking Status: Never smoker Past Alcohol Use History: None Reported Past Drug Use History: None Reported - Past Family History Mother Family Medical History: Cancer, Coronary Artery Disease (CAD), Hypertension Additional Family Medical History / Comment(s): restless legs Father Family Medical History: Coronary Artery Disease (CAD), Diabetes Mellitus, GE RD/Reflux, Hyperlipidemia, Hypertension, Sleep Apnea/CPAP/BIPAP Additional Family Medical History / Comment(s): restless legs, snoring Medications and Allergies Home Medications Medication Instructions Recorded Confirmed Type Pantoprazole Sodium [Protonix] 20 mg PO DAILY PRN 06/29/23 06/29/23 History hydroCHLOROthiazide [Hydrodiuril] 12.5 mg PO DAILY 06/29/23 06/29/23 History Desvenlafaxine Succinate [Pristiq] 25 mg PO DAILY 12/11/24 12/11/24 History Losartan [Cozaar] 50 mg PO DAILY 12/11/24 12/11/24 History Spironolactone 25 mg PO DAILY 12/11/24 12/11/24 History Allergies Allergy/AdvReac Type Severity Reaction Status Date / Time sesame oil Allergy Rash/Hives Verified 06/29/23 19:17 fluconazole [From Diflucan] AdvReac Mild Rash/Hives Verified 06/29/23 19:17 drospirenone [From DAVID (28)] AdvReac Rash/Hives Verified 06/29/23 19:17 ethinyl estradiol AdvReac Rash/Hives Verified 06/29/23 19:17 [From DAVID (28)] Physical Exam Vitals: Vital Signs Temp Pulse Resp BP Pulse Ox 12/11/24 15:17 98 F 104 H 16 131/85 95 Intake and Output 12/11/24 12/11/24 12/11/24 06:59 14:59 22:59 Other: Weight 91.626 kg The patient appeared well nourished and normally developed. Vital signs as documented. BMI is 35.8. Mallampati class I Head exam is unremarkable. No scleral icterus or corneal arcus noted. Neck is without jugular venous distension, thyromegaly, or carotid bruits. Carotid upstrokes are brisk bilaterally. Lungs are clear to auscultation and percussion. Cardiac exam reveals the PMI to be normally sized and situated. Rhythm is regular. First and second heart sounds normal. No murmurs, rubs or gallops. Abdominal exam reveals normal bowel sounds, no masses, no organomegaly and no aortic enlargement. Extremities are nonedematous and both femoral and pedal pulses are normal. Examination of the skin revealed no evidence of significant rashes, suspicious appearing nevi or other concerning lesions. Neurologically, the patient is awake and alert and the patient does not have any focal neurological deficit. Cranial nerves are essentially intact. Assessment and Plan Plan: Chronic fatigue/sleepiness with an Full[place] score of 7. In addition, the patient has loud snoring and sleep fragmentation and a strong family history for obstructive sleep apnea as several family members have been diagnosed and tr eated for ROSARIO and her household. Obesity with a BMI of 35.7 and a recent 20 pound weight gain History of sleep talking Hypertension Chronic anxiety maintained on Pristiq Plan Encourage weight loss Maintain good sleep hygiene measures Maintain regular sleep schedule continue Pristiq Sleep on his side with the head of the bed elevated avoid alcoholic beverages at least 3 hours prior to going to bed Proceed with a home sleep study as a screening to rule out underlying obstructive sleep apnea. Further recommendations are to follow based on results of the sleep study. Sleep Note - Sleep Data ESS Total: 7 - Sleep Note Sleep Note: Temperature: 98 F Pulse Rate: 104 Respiratory Rate: 16 Blood Pressure: 131/85 SpO2: 95 Height: 5 ft 3 in Weight: 91.626 kg BMI: Neck Circumference: 14.2
== END ==
LOC: 3 N SLEEP 14:37
PROVIDERS: ATTEND Internal Medicine Critical Care Medicine
DX: G47.33 Obstructive sleep apnea (adult) (pediatric) (principal); G47.50 Parasomnia, unspecified; I10 Essential (primary) hypertension; F41.9 Anxiety disorder, unspecified; G89.29 Other chronic pain; Z68.35 Body mass index [BMI] 35.0-35.9, adult; Z88.8 Allergy status to other drugs, medicaments and biological substances; Z91.018 Allergy to other foods
CPT/HCPCS: 99211